=== PATIENT | female | born 1965 | race Caucasian/White ===

== ENCOUNTER 2016-06-12 18:34 | Emergency (ER) | payer OTHER ==
[~2016-06-12] VITALS: Ht 180.3 cm; Wt 65.9 kg
[~2016-06-12 18:34] MED LIST: AKTOB 5 ML5 ML OP; ANTIVERT 25MG25 MG PO; ATIVAN 0.50.5 MG/TAB PO; ATROVENT INHALE14 GM IH; BACTRIM DS 8001 TAB PO; CALCIUM 600600 M2 PO; CALCIUM CARBONATE PO; CEFTIN 250250 MG/TAB PO; CEPHALEXIN500 M1 PO; CHOLESTEROL MED; COLCRYS0.6 MG PO; FLEXERIL 1010 MG/TAB PO; FLOMAX 0.40.4 MG/CAP PO; K-DUR 10 MEQ T10 MEQ; K-DUR 2020 MEQ PO; K-DUR20 MEQ PO; K-TAB20 PO; LASIX 20MG TABL20 MG PO; LITHIUM 30300 MG/CAP PO; LORTAB 7.5/5001 TAB PO; MOTRIN 600600 MG/TAB PO; MULTIVITAMIN FO1 CAP PO; NORCO 325 MG-51 TAB PO; NORCO 325 MG-7.1 TAB PO; PERCOCET 325 MG1 TA2 PO; PHENERGAN 25 TA25 MG PO; PRIL40 PO; PRILOTC PO; PROZAC40 MG PO; REGLAN 10MG10 MG/TAB PO; REQUIP 0.5MG0.5 MG PO; REQUIP5 MG PO; SEROQUEL 2525 MG/TAB PO; SEROQUEL300 MG PO; SYNTHROID 0.0.025 MG PO; ULORIC80 MG PO; VALIUM 5MG T5 MG/TAB PO; VESICARE 5MG5 MG PO; ZOFRAN 4MG T4 MG/TAB PO; ZYPREXA 5MG5 MG PO; ZYPREXA2.5 MG PO; ZYPREXA7.5 MG PO
[2016-06-12 18:48] VITALS: BP 132/86; TEMP 98.4
[2016-06-12 21:19] LABS: ADJUSTED CALCIUM 9.5 mg/dL (8.4-10.2); ALBUMIN 3.2 gm/dL (3.5-5.0); BILIRUBIN,TOTAL 1.3 mg/dL (0.0-1.0); C-REACTIVE PROTEIN 1.5 mg/dL (0.0-0.9); CALCIUM 8.9 mg/dL (8.4-10.2); CREATININE, serum 0.77 mg/dL (0.52-1.25); MAGNESIUM 1.2 mg/dL (1.6-2.3); POTASSIUM 3.1 mmol/L (3.4-5.0); TOTAL PROTEIN 6.4 gm/dL (6.4-8.2)
[2016-06-12 21:26] LABS: HEMATOCRIT 39.3 % (37.0-47.0); HEMOGLOBIN 13.5 g/dl (12.5-16.0); MEAN CELL VOLUME 98 fl (80.0-100.0); MEAN CORPUSCULAR HEMOGLOBIN 34 pg (27.0-31.0); MEAN CORPUSCULAR HGB CONC 34 g/dl (33.0-37.0); MEAN PLATELET VOLUME 9.8 fl (7.4-10.4); PLATELET COUNT 146 K/mm3 (130-400); RED BLOOD COUNT 4.01 M/mm3 (4.10-5.30); WHITE BLOOD COUNT 8.7 K/mm3 (4.8-10.8)
[2016-06-12 21:27] LABS: URIC ACID 8.2 mg/dL (2.5-6.2)
[2016-06-12 22:29] LABS: PH 9 (5-8); SQUAMOUS EPITHELIAL 0-2 /hpf; URINE APPEARANCE Clear; URINE BACTERIA Rare /hpf; URINE BILIRUBIN Negative (NEGATIVE); URINE BLOOD 2+ (NEGATIVE); URINE COLOR Straw; URINE GLUCOSE Negative (NEGATIVE); URINE KETONE Negative (NEGATIVE); URINE RBC 0-2 /hpf; URINE UROBILINOGEN Negative (NEGATIVE); URINE WBC 0-2 /hpf
[2016-06-12] MEDS ORDERED: NORCO 325 MG-51 TAB PO (23:20)
[2016-06-12] MEDS ORDERED: INDOCIN50 MG PO (23:20)
[2016-06-12 23:53] VITALS: PULSE 82
== END 2016-06-13 00:22 | disposition home or self-care (01) ==
LOC: COL.ER 18:34
PROVIDERS: Emergency Medicine; Nurse Practitioner
DX: M10.9 Gout, unspecified (principal); M79.675 Pain in left toe(s)
CPT/HCPCS: J1100; J3010; J7030

== ENCOUNTER 2017-02-08 14:29 | Emergency (ER) | payer SELFPAY ==
[~2017-02-08] VITALS: Ht 180.3 cm; Wt 62.3 kg
[~2017-02-08 14:29] MED LIST changes: +INDOCIN50 MG PO
[2017-02-08 14:43] VITALS: TEMP 98
[2017-02-08] MEDS ORDERED: PRILOTC (14:48)
[2017-02-08] MEDS ORDERED: K-TAB20 (14:49)
[2017-02-08 15:45] LABS: ADJUSTED CALCIUM 8.8 mg/dL (8.4-10.2); ALBUMIN 3.5 gm/dL (3.5-5.0); BILIRUBIN,TOTAL 1.1 mg/dL (0.0-1.0); CALCIUM 8.4 mg/dL (8.4-10.2); CREATININE, serum 0.74 mg/dL (0.52-1.25); TOTAL PROTEIN 6.7 gm/dL (6.4-8.2)
[2017-02-08 15:49] LABS: BASO % 0.7 % (0.0-2.0); GRAN # 3.6 (1.4-6.5); GRAN % 63.8 % (42.2-75.2); HEMOGLOBIN 14.2 g/dl (12.5-16.0); LYMPH # 1.7 (1.2-3.4); LYMPH % 30.4 % (20.0-51.0); MEAN CELL VOLUME 95 fl (80.0-100.0); MEAN CORPUSCULAR HEMOGLOBIN 34 pg (27.0-31.0); MEAN CORPUSCULAR HGB CONC 36 g/dl (33.0-37.0); MEAN PLATELET VOLUME 9.4 fl (7.4-10.4); MONO # 0.3 (0.1-0.6); MONO % 4.9 % (1.7-9.3); PLATELET COUNT 291 K/mm3 (130-400); REDCELL DISTRIBUTION WIDTH-CV 14.6 % (11.5-14.5); WHITE BLOOD COUNT 5.6 K/mm3 (4.8-10.8)
[2017-02-08 17:05] LABS: PH 7 (5-8); URINE APPEARANCE Cloudy; URINE BACTERIA Moderate /hpf; URINE BILIRUBIN Positive (NEGATIVE); URINE BLOOD 2+ (NEGATIVE); URINE COLOR Amber; URINE GLUCOSE Negative (NEGATIVE); URINE KETONE Negative (NEGATIVE)
[2017-02-08] MEDS ORDERED: PHENERGAN 25 TA25 MG PO (17:30)
[2017-02-08] MEDS ORDERED: CIPRO 500MG TA500 MG PO (17:30)
[2017-02-08] MEDS ORDERED: K-TAB20 PO (17:30)
[2017-02-08 17:44] VITALS: BP 103/86; PULSE 103
== END 2017-02-08 17:43 | disposition home or self-care (01) ==
LOC: COL.ER 14:29
PROVIDERS: Emergency Medicine
DX: N39.0 Urinary tract infection, site not specified (principal); E87.6 Hypokalemia; M10.9 Gout, unspecified; F17.210 Nicotine dependence, cigarettes, uncomplicated; Z90.49 Acquired absence of other specified parts of digestive tract
CPT/HCPCS: J2550; J7030

== ENCOUNTER → 2017-11-26 | Outpatient (CLI) | payer MEDICARE, MEDICAID ==
[~2017-11-26] MED LIST changes: +CIPRO 500MG TA500 MG PO; +K-TAB20; +PRILOTC
[2017-11-26 11:03] LABS: HEMATOCRIT 36.1 % (37.0-47.0); HEMOGLOBIN 12.1 g/dl (12.5-16.0); MEAN CELL VOLUME 101 fl (80.0-100.0); MEAN CORPUSCULAR HEMOGLOBIN 34 pg (27.0-31.0); MEAN CORPUSCULAR HGB CONC 34 g/dl (33.0-37.0); MEAN PLATELET VOLUME 9.7 fl (7.4-10.4); PLATELET COUNT 175 K/mm3 (130-400); RED BLOOD COUNT 3.58 M/mm3 (4.10-5.30); REDCELL DISTRIBUTION WIDTH-CV 17.4 % (11.5-14.5)
[2017-11-26 11:10] LABS: ALANINE AMINOTRANSFERASE 85 U/L (9-52); ALBUMIN 3.2 gm/dL (3.5-5.0); ALKALINE PHOSPHATASE 148 U/L (50-136); ANION GAP 10 mmol/L (7-16); AST,SGOT 198 U/L (15-37); BILIRUBIN,TOTAL 0.5 mg/dL (0.0-1.0); BLOOD UREA NITROGEN 3 mg/dL (7-17); CALCIUM 7.8 mg/dL (8.4-10.2); CARBON DIOXIDE 31 mmol/L (22-30); CHLORIDE 101 mmol/L (98-107); CHOLESTEROL 152 mg/dL (120-200); CHOLESTEROL RISK RATIO 3.8; CREATININE, serum 0.56 mg/dL (0.52-1.25); GLUCOSE 88 mg/dL (74-106); HDL CHOLESTEROL 39 mg/dL; MAGNESIUM 1.4 mg/dL (1.6-2.3); POTASSIUM 3.2 mmol/L (3.4-5.0); SODIUM 142 mmol/L (137-145); TOTAL PROTEIN 6.3 gm/dL (6.4-8.2); URIC ACID 12.6 mg/dL (2.5-6.2)
[2017-11-26 11:19] LABS: TRIGLYCERIDE 638 mg/dL
[2017-11-26 11:50] LABS: BAND 4 % (0-10); LYMPHOCYTE 60 % (20.0-51.0); NEUTROPHILS 30 % (42.0-75.2); PLATELET ESTIMATE NORMAL (NORMAL)
[2017-11-26 11:51] LABS: ANISOCYTOSIS 1+; STOMATOCYTE 3+
[2017-11-30 15:04] LABS: VITAMIN D, 1,25 DIHYDROXY 21 pg/mL (18-78)
== END ==
LOC: COL.LAB 10:27
PROVIDERS: Family Medicine
DX: Z13.1 Encounter for screening for diabetes mellitus (principal); D64.9 Anemia, unspecified; E03.9 Hypothyroidism, unspecified; E78.5 Hyperlipidemia, unspecified; R53.83 Other fatigue; R63.0 Anorexia; M10.9 Gout, unspecified

== ENCOUNTER → 2017-12-07 | Outpatient (CLI) | payer MEDICARE, MEDICAID ==
[2017-12-07 12:49] LABS: HIV 1/2 Antibodies Non-Reactive; HIV-1p24 Antigen Non-Reactive
== END ==
LOC: COL.LAB 10:06
PROVIDERS: Family Medicine
DX: D72.819 Decreased white blood cell count, unspecified (principal)

== ENCOUNTER → 2018-05-18 | Outpatient (CLI) | payer MEDICARE, MEDICAID | LOC: COL.RAD 09:35 | DX: J40 Bronchitis, not specified as acute or chronic (principal) ==

== ENCOUNTER → 2018-06-22 | Outpatient (CLI) | payer MEDICARE | LOC: MC.RAD 12:57 | DX: D17.79 Benign lipomatous neoplasm of other sites (principal); N63.20 Unspecified lump in the left breast, unspecified quadrant; Z91.89 Other specified personal risk factors, not elsewhere classified | CPT/HCPCS: G0279 ==

== ENCOUNTER → 2019-02-09 | Outpatient (CLI) | payer MEDICARE ==
[~2019-02-09] MED LIST changes: +ALDACTONE 100M100 MG PO; +COLACE 100100 MG/CAP PO; +INCRUSE EL62.5 MCG/A IH; +LASIX 40MG TABL40 MG PO; +LOPID 600M600 MG/TAB PO; +MAG-OX 400400 MG/TAB PO; +OMNICEF 300MG300 MG PO; -PRILOTC; +REQUIP0.25 MG PO; +SYNTHROID0.05 MG/TA PO; +SYNTHROID0.075 MG/T PO; +VENTOLIN0.09 MG IH; +ZOFRAN ODT4 MG PO
[2019-02-09 17:33] LABS: BASO % 0.4 % (0.0-2.0); GRAN # 3.5 (1.4-6.5); GRAN % 65.7 % (42.2-75.2); HEMATOCRIT 40.6 % (37.0-47.0); LYMPH # 1.6 (1.2-3.4); LYMPH % 29.9 % (20.0-51.0); MEAN CELL VOLUME 97 fl (80.0-100.0); MEAN CORPUSCULAR HEMOGLOBIN 31 pg (27.0-31.0); MEAN CORPUSCULAR HGB CONC 32 g/dl (33.0-37.0); MONO # 0.2 (0.1-0.6); MONO % 3.8 % (1.7-9.3); PLATELET COUNT 265 K/mm3 (130-400); RED BLOOD COUNT 4.18 M/mm3 (4.10-5.30); REDCELL DISTRIBUTION WIDTH-CV 17.6 % (11.5-14.5); RETIC % 2.4 % (0.5-3.52)
== END ==
LOC: ZCOL.LAB 16:48
PROVIDERS: Family Medicine
DX: D64.9 Anemia, unspecified (principal)

== ENCOUNTER → 2019-03-03 | Outpatient (CLI) | payer MEDICARE ==
[2019-03-03 13:19] LABS: BASO % 0.4 % (0.0-2.0); GRAN # 2.6 (1.4-6.5); GRAN % 56.7 % (42.2-75.2); HEMATOCRIT 38.5 % (37.0-47.0); LYMPH # 1.5 (1.2-3.4); LYMPH % 34.1 % (20.0-51.0); MEAN CELL VOLUME 96 fl (80.0-100.0); MEAN CORPUSCULAR HEMOGLOBIN 33 pg (27.0-31.0); MEAN CORPUSCULAR HGB CONC 34 g/dl (33.0-37.0); MEAN PLATELET VOLUME 9.7 fl (7.4-10.4); MONO # 0.4 (0.1-0.6); MONO % 8.6 % (1.7-9.3); PLATELET COUNT 225 K/mm3 (130-400); REDCELL DISTRIBUTION WIDTH-CV 19.2 % (11.5-14.5)
[2019-03-03 13:37] LABS: ALBUMIN 3.5 gm/dL (3.5-5.0); BILIRUBIN,TOTAL 0.6 mg/dL (0.0-1.0); CREATININE, serum 0.64 (0.52-1.25); POTASSIUM 3.1 mmol/L (3.4-5.0)
[2019-03-03 14:05] LABS: THYROID STIMULATING HORMONE 2.98 uIU/mL (0.465-4.680)
== END ==
LOC: ZCOL.LAB 13:09
PROVIDERS: Family Medicine
DX: K74.60 Unspecified cirrhosis of liver (principal); E03.9 Hypothyroidism, unspecified; R18.8 Other ascites

== ENCOUNTER → 2019-05-30 | Outpatient (CLI) | payer MEDICARE ==
[2019-05-30 15:24] LABS: BASO % 0.4 % (0.0-2.0); GRAN # 2.8 (1.4-6.5); GRAN % 54.8 % (42.2-75.2); HEMATOCRIT 41.2 % (37.0-47.0); HEMOGLOBIN 13.3 g/dl (12.5-16.0); LYMPH # 1.8 (1.2-3.4); LYMPH % 35.9 % (20.0-51.0); MEAN CELL VOLUME 97 fl (80.0-100.0); MEAN CORPUSCULAR HEMOGLOBIN 31 pg (27.0-31.0); MEAN CORPUSCULAR HGB CONC 32 g/dl (33.0-37.0); MEAN PLATELET VOLUME 9.5 fl (7.4-10.4); MONO # 0.4 (0.1-0.6); MONO % 8.5 % (1.7-9.3); PLATELET COUNT 293 K/mm3 (130-400); RED BLOOD COUNT 4.26 M/mm3 (4.10-5.30); REDCELL DISTRIBUTION WIDTH-CV 17.6 % (11.5-14.5)
[2019-05-30 15:37] LABS: ALBUMIN 3.7 gm/dL (3.5-5.0); BILIRUBIN,TOTAL 0.7 mg/dL (0.0-1.0); CALCIUM 9.2 mg/dL (8.4-10.2); CREATININE, serum 0.71 (0.52-1.25); POTASSIUM 3.8 mmol/L (3.4-5.0); TOTAL PROTEIN 7.8 gm/dL (6.4-8.2)
[2019-05-30 16:19] LABS: PROTHROMBIN TIME 11.4 SECONDS (9.7-12.8)
== END ==
LOC: COL.LAB 14:42
PROVIDERS: Internal Medicine Gastroenterology
DX: K74.60 Unspecified cirrhosis of liver (principal)

== ENCOUNTER 2019-06-19 13:06 | Day surgery (SDC) | payer MEDICARE ==
[~2019-06-19] VITALS: Ht 180.3 cm; Wt 72.0 kg
[2019-06-19 13:37] VITALS: BP 126/81; PULSE 97; TEMP 98.2
[2019-06-19] MEDS ORDERED: REQUIP 0.5MG0.5 MG PO (13:40)
[2019-06-19] MEDS ORDERED: LASIX 40MG TABL40 MG PO (13:40)
[2019-06-19] MEDS ORDERED: PRIL40 PO (13:41)
[2019-06-19] MEDS ORDERED: RT ADVAIR 228 DISKUS IH (13:41)
[2019-06-19] MEDS ORDERED: ALDACTONE 100M100 MG PO (13:41)
[2019-06-19] MEDS ORDERED: ZOFRAN 4MG T4 MG/TAB PO (13:42)
[2019-06-19] MEDS ORDERED: LEVOXYL0.075 MG PO (13:42)
[2019-06-19] MEDS ORDERED: PROMETHAZINE12.5 M5 PO (13:43)
[2019-06-19] MEDS ORDERED: LOPID 600M600 MG/TAB PO (13:43)
[2019-06-19] MEDS ORDERED: INCRUSE EL62.5 MCG/A IH (13:43)
[2019-06-19] MEDS ORDERED: KLOR-CON M2020 MEQ PO (13:44)
[2019-06-19] MEDS ORDERED: ULORIC40 MG PO (13:44)
[2019-06-19 14:50] VITALS: BP 116/66; PULSE 99; TEMP 98.2
--- NOTE | 2019-06-19 14:50 | NUR ---
Patient brought back to [facility] bay 3 via cart. Ambulated to chair without difficulty. Placed on monitors, vital signs stable. IV infusing without difficulty. Cady RN at bedside for report. Pt denies pain or nausea. Requests toast and grape juice. Significant other at bedside. Call maldonado within reach. Warm blanket provided will continue to monitor.
[2019-06-19 15:05] VITALS: BP 109/85; PULSE 95
--- NOTE | 2019-06-19 15:05 | NUR ---
Vital signs stable. pt tolerating food and drink without difficulty. Will continue to monitor.
[2019-06-19 15:20] VITALS: BP 117/79; PULSE 88
--- NOTE | 2019-06-19 15:20 | NUR ---
Patient states that she is ready to go home. Dr. Joyner has not been able to visit with pt, per MD may discharge anyhow. IV removed tolerated well. Pt to get dressed at this time.
--- NOTE | 2019-06-19 15:37 | NUR ---
Discharge instructions reviewed with pt and significant other. All questions answered. Pt brought down to lobby via wheel chair. To be driven home by significant other Montrell.
== END 2019-06-19 15:20 | disposition home or self-care (01) ==
LOC: SDCO 13:06
DX: K74.60 Unspecified cirrhosis of liver (principal); K22.10 Ulcer of esophagus without bleeding; K21.0 Gastro-esophageal reflux disease with esophagitis; K44.9 Diaphragmatic hernia without obstruction or gangrene; K29.70 Gastritis, unspecified, without bleeding; K62.89 Other specified diseases of anus and rectum; K64.0 First degree hemorrhoids; Z79.899 Other long term (current) drug therapy; F17.210 Nicotine dependence, cigarettes, uncomplicated; F41.9 Anxiety disorder, unspecified; E03.9 Hypothyroidism, unspecified; D64.9 Anemia, unspecified; D69.6 Thrombocytopenia, unspecified; J44.9 Chronic obstructive pulmonary disease, unspecified; I10 Essential (primary) hypertension; E78.5 Hyperlipidemia, unspecified; F10.21 Alcohol dependence, in remission; J40 Bronchitis, not specified as acute or chronic
CPT/HCPCS: J2250; J2704; J7030

== ENCOUNTER → 2019-10-03 | Outpatient (CLI) | payer MEDICARE ==
[~2019-10-03] VITALS: Ht 177.8 cm; Wt 69.3 kg
[~2019-10-03] MED LIST changes: +AMOXICILLIN 8751 TAB PO; +KLOR-CON M2020 MEQ PO; +LEVOXYL0.075 MG PO; +PROMETHAZINE12.5 M5 PO; +RT ADVAIR 228 DISKUS IH; +ULORIC40 MG PO
[2019-10-03 11:49] VITALS: BP 135/79; PULSE 118
[2019-10-03 12:11] LABS: BASO % 0.3 % (0.0-2.0); EOS % 0.3 % (0-4.0); GRAN # 5.3 (1.4-6.5); GRAN % 76.9 % (42.2-75.2); HEMOGLOBIN 12.6 g/dl (12.5-16.0); LYMPH # 1.3 (1.2-3.4); MEAN CELL VOLUME 97 fl (80.0-100.0); MEAN CORPUSCULAR HEMOGLOBIN 33 pg (27.0-31.0); MEAN CORPUSCULAR HGB CONC 34 g/dl (33.0-37.0); MEAN PLATELET VOLUME 8.7 fl (7.4-10.4); MONO # 0.2 (0.1-0.6); MONO % 3.2 % (1.7-9.3); PLATELET COUNT 316 K/mm3 (130-400); RED BLOOD COUNT 3.79 M/mm3 (4.10-5.30); REDCELL DISTRIBUTION WIDTH-CV 14.8 % (11.5-14.5)
[2019-10-03 12:13] LABS: HEMATOCRIT 36.8 % (37.0-47.0)
[2019-10-03 12:22] LABS: INR 1.2 (0.8-3.0); PROTHROMBIN TIME 13.2 SECONDS (9.7-12.8)
[2019-10-03 12:35] LABS: ALBUMIN 3.1 gm/dL (3.5-5.0); BILIRUBIN,TOTAL 1.3 mg/dL (0.0-1.0); CALCIUM 8.6 mg/dL (8.4-10.2); CREATININE, serum 0.71 (0.52-1.25); TOTAL PROTEIN 7.1 gm/dL (6.4-8.2)
[2019-10-03 13:25] VITALS: BP 129/83; PULSE 113
[2019-10-03 13:58] LABS: PLEURAL FLUID RBC 0 /mm3 (0-0); PLEURAL FLUID WBC 154 /mm3
[2019-10-03 14:05] LABS: PLEURAL FLUID COLOR COLORLESS
[2019-10-03 14:06] LABS: PLEURAL FLUID APPEARANCE CLEAR
[2019-10-03 14:09] LABS: TOTAL PROTEIN,PLEURAL FLUID < 2.0 gm/dL
[2019-10-03 16:02] VITALS: BP 126/77; PULSE 118
== END ==
LOC: COL.RAD 11:26
PROVIDERS: Internal Medicine Gastroenterology
DX: K74.60 Unspecified cirrhosis of liver (principal); E87.70 Fluid overload, unspecified
CPT/HCPCS: P9047

== ENCOUNTER 2019-12-07 16:44 | Emergency (ER) | payer MEDICARE ==
[~2019-12-07] VITALS: Ht 177.8 cm; Wt 68.2 kg
[2019-12-07 16:52] VITALS: TEMP 98.3
[2019-12-07 17:52] LABS: HEMATOCRIT 37.3 % (37.0-47.0); HEMOGLOBIN 12.6 g/dl (12.5-16.0); MEAN CELL VOLUME 96 fl (80.0-100.0); MEAN CORPUSCULAR HEMOGLOBIN 33 pg (27.0-31.0); MEAN CORPUSCULAR HGB CONC 34 g/dl (33.0-37.0); MEAN PLATELET VOLUME 10.3 fl (7.4-10.4); PLATELET COUNT 150 K/mm3 (130-400); RED BLOOD COUNT 3.87 M/mm3 (4.10-5.30)
[2019-12-07 18:04] LABS: ALANINE AMINOTRANSFERASE 27 U/L (4-34); ALBUMIN 2.8 gm/dL (3.5-5.0); ALKALINE PHOSPHATASE 299 U/L (50-136); ANION GAP 8 mmol/L (7-16); AST,SGOT 140 U/L (15-37); BILIRUBIN,TOTAL 1.5 mg/dL (0.0-1.0); BLOOD UREA NITROGEN 4 mg/dL (7-17); C-REACTIVE PROTEIN 1.6 mg/dL (0.0-0.9); CALCIUM 7.8 mg/dL (8.4-10.2); CARBON DIOXIDE 30 mmol/L (22-30); CHLORIDE 93 mmol/L (98-107); CREATININE, serum 0.67 (0.52-1.25); GLUCOSE 134 mg/dL (74-106); SODIUM 132 mmol/L (137-145); TOTAL PROTEIN 6.6 gm/dL (6.4-8.2)
[2019-12-07 18:06] LABS: POTASSIUM 2.8 mmol/L (3.4-5.0)
[2019-12-07 18:17] LABS: TROPONIN-I < 0.012 ng/mL (0.000-0.035)
[2019-12-07 18:25] LABS: ANISOCYTOSIS 3+; BAND 2 % (0-10); LYMPHOCYTE 22 % (20.0-51.0); NEUTROPHILS 71 % (42.0-75.2); PLATELET ESTIMATE NORMAL (NORMAL)
[2019-12-07 18:26] LABS: STOMATOCYTE 1+
[2019-12-07 20:14] VITALS: BP 92/64; PULSE 99
[2019-12-07] MEDS ORDERED: K-DUR20 MEQ PO (20:23)
== END 2019-12-07 20:25 | disposition home or self-care (01) ==
LOC: COL.ER 16:44
PROVIDERS: Nurse Practitioner
DX: R06.02 Shortness of breath (principal); E87.6 Hypokalemia; F17.210 Nicotine dependence, cigarettes, uncomplicated; J44.9 Chronic obstructive pulmonary disease, unspecified; K21.9 Gastro-esophageal reflux disease without esophagitis; Z20.828 Contact with and (suspected) exposure to other viral communicable diseases; Z79.2 Long term (current) use of antibiotics
CPT/HCPCS: J3480; J7030; Q9967

== ENCOUNTER 2019-12-23 00:14 | Emergency (ER) | payer MEDICARE ==
[~2019-12-23] VITALS: Ht 180.3 cm; Wt 65.9 kg
[2019-12-23 00:21] VITALS: TEMP 97.1
[2019-12-23 00:56] LABS: BASO % 0.5 % (0.0-2.0); GRAN # 3.8 (1.4-6.5); GRAN % 59.6 % (42.2-75.2); HEMOGLOBIN 11.9 g/dl (12.5-16.0); LYMPH % 31.5 % (20.0-51.0); MEAN CELL VOLUME 100 fl (80.0-100.0); MEAN CORPUSCULAR HEMOGLOBIN 34 pg (27.0-31.0); MEAN CORPUSCULAR HGB CONC 34 g/dl (33.0-37.0); MONO # 0.5 (0.1-0.6); MONO % 8.2 % (1.7-9.3); PLATELET COUNT 176 K/mm3 (130-400); RED BLOOD COUNT 3.51 M/mm3 (4.10-5.30)
[2019-12-23 01:08] LABS: ALBUMIN 2.9 gm/dL (3.5-5.0); BILIRUBIN,TOTAL 0.9 mg/dL (0.0-1.0); C-REACTIVE PROTEIN 0.6 mg/dL (0.0-0.9); CALCIUM 8.1 mg/dL (8.4-10.2); CREATININE, serum 0.82 (0.52-1.25); MAGNESIUM 1.3 mg/dL (1.6-2.3); POTASSIUM 3.4 mmol/L (3.4-5.0); TOTAL PROTEIN 6.9 gm/dL (6.4-8.2)
[2019-12-23] MEDS ORDERED: ANTIVERT 25MG25 MG PO (01:27)
[2019-12-23] MEDS ORDERED: CARAFATE 1GM1 G PO (01:27)
[2019-12-23] MEDS ORDERED: ZOFRAN ODT4 MG PO (01:27)
[2019-12-23] MEDS ORDERED: REQUIP 1MG T1 MG/TAB PO (02:33)
[2019-12-23 02:49] VITALS: BP 122/70; PULSE 68
== END 2019-12-23 02:49 | disposition home or self-care (01) ==
LOC: COL.ER 00:14
PROVIDERS: Emergency Medicine
DX: K29.70 Gastritis, unspecified, without bleeding (principal); E83.42 Hypomagnesemia; R42 Dizziness and giddiness; J44.9 Chronic obstructive pulmonary disease, unspecified; F10.229 Alcohol dependence with intoxication, unspecified; F41.9 Anxiety disorder, unspecified; E03.9 Hypothyroidism, unspecified; Z90.49 Acquired absence of other specified parts of digestive tract; Z98.51 Tubal ligation status; Z90.89 Acquired absence of other organs; Z79.51 Long term (current) use of inhaled steroids
CPT/HCPCS: J2405; J2550; J7030

== ENCOUNTER 2019-12-30 15:24 | Emergency (ER) | payer MEDICARE ==
[~2019-12-30] VITALS: Ht 180.3 cm; Wt 68.2 kg
[~2019-12-30 15:24] MED LIST changes: +CARAFATE 1GM1 G PO; +REQUIP 1MG T1 MG/TAB PO
[2019-12-30 15:54] VITALS: TEMP 97.5
[2019-12-30 19:41] LABS: BASO % 0.6 % (0.0-2.0); GRAN # 2.9 (1.4-6.5); GRAN % 59.6 % (42.2-75.2); HEMATOCRIT 37.6 % (37.0-47.0); HEMOGLOBIN 12.3 g/dl (12.5-16.0); LYMPH # 1.6 (1.2-3.4); LYMPH % 31.9 % (20.0-51.0); MEAN CELL VOLUME 104 fl (80.0-100.0); MEAN CORPUSCULAR HEMOGLOBIN 34 pg (27.0-31.0); MEAN CORPUSCULAR HGB CONC 33 g/dl (33.0-37.0); MEAN PLATELET VOLUME 9.4 fl (7.4-10.4); MONO # 0.4 (0.1-0.6); MONO % 7.7 % (1.7-9.3); PLATELET COUNT 153 K/mm3 (130-400); RED BLOOD COUNT 3.63 M/mm3 (4.10-5.30); REDCELL DISTRIBUTION WIDTH-CV 18.3 % (11.5-14.5)
[2019-12-30 19:50] LABS: INR 1.3 (0.8-3.0)
[2019-12-30 20:01] LABS: ALBUMIN 2.8 gm/dL (3.5-5.0); BILIRUBIN,TOTAL 1.4 mg/dL (0.0-1.0); C-REACTIVE PROTEIN 1.1 mg/dL (0.0-0.9); CALCIUM 8.2 mg/dL (8.4-10.2); CREATININE, serum 0.81 (0.52-1.25); MAGNESIUM 1.5 mg/dL (1.6-2.3); TOTAL PROTEIN 6.9 gm/dL (6.4-8.2)
[2019-12-30 20:09] LABS: D-DIMER > 5250.00 ng/mLDDu (200-230)
[2019-12-30 21:21] VITALS: BP 93/52; PULSE 108
== END 2019-12-30 21:26 | disposition home or self-care (01) ==
LOC: COL.ER 15:24
PROVIDERS: Emergency Medicine
DX: M79.89 Other specified soft tissue disorders (principal); R79.1 Abnormal coagulation profile; E03.9 Hypothyroidism, unspecified; E87.6 Hypokalemia; F17.200 Nicotine dependence, unspecified, uncomplicated
CPT/HCPCS: J1650; J2550; J7030

== ENCOUNTER → 2020-01-01 | Outpatient (CLI) | payer MEDICARE | LOC: COL.VAS 09:00 | DX: M79.89 Other specified soft tissue disorders (principal); R79.1 Abnormal coagulation profile ==

== ENCOUNTER 2020-01-31 07:59 | Emergency (ER) | payer MEDICARE ==
[~2020-01-31] VITALS: Ht 180.3 cm; Wt 68.2 kg
[2020-01-31 08:06] VITALS: TEMP 97.3
[2020-01-31 09:10] LABS: BASO % 0.3 % (0.0-2.0); EOS % 0.1 % (0-4.0); GRAN # 6.9 (1.4-6.5); GRAN % 70.3 % (42.2-75.2); HEMOGLOBIN 10.8 g/dl (12.5-16.0); LYMPH # 2.3 (1.2-3.4); LYMPH % 23.1 % (20.0-51.0); MEAN CELL VOLUME 97 fl (80.0-100.0); MEAN CORPUSCULAR HEMOGLOBIN 33 pg (27.0-31.0); MEAN CORPUSCULAR HGB CONC 34 g/dl (33.0-37.0); MEAN PLATELET VOLUME 8.6 fl (7.4-10.4); MONO # 0.6 (0.1-0.6); MONO % 5.7 % (1.7-9.3); PLATELET COUNT 422 K/mm3 (130-400); RED BLOOD COUNT 3.25 M/mm3 (4.10-5.30); REDCELL DISTRIBUTION WIDTH-CV 14.5 % (11.5-14.5)
[2020-01-31 09:11] LABS: HEMATOCRIT 31.5 % (37.0-47.0)
[2020-01-31 09:21] LABS: ALANINE AMINOTRANSFERASE 14 U/L (4-34); ALCOHOL(ethanol),MEDICAL 88 mg/dL; ALKALINE PHOSPHATASE 149 U/L (50-136); ANION GAP 11 mmol/L (7-16); AST,SGOT 68 U/L (15-37); BILIRUBIN,TOTAL 0.6 mg/dL (0.0-1.0); BLOOD UREA NITROGEN 11 mg/dL (7-17); C-REACTIVE PROTEIN 1.2 mg/dL (0.0-0.9); CALCIUM 8.4 mg/dL (8.4-10.2); CARBON DIOXIDE 23 mmol/L (22-30); CHLORIDE 101 mmol/L (98-107); CREATININE, serum 0.79 (0.52-1.25); GLUCOSE 110 mg/dL (74-106); LIPASE 37 U/L (23-300); SODIUM 136 mmol/L (137-145); TOTAL PROTEIN 6.1 gm/dL (6.4-8.2)
[2020-01-31 09:32] LABS: TROPONIN-I < 0.012 ng/mL (0.000-0.035)
[2020-01-31 12:30] VITALS: BP 110/77; PULSE 120
== END 2020-01-31 12:30 | disposition home or self-care (01) ==
LOC: COL.ER 07:59
PROVIDERS: Emergency Medicine
DX: S30.1XXA Contusion of abdominal wall, initial encounter (principal); F10.10 Alcohol abuse, uncomplicated; K74.60 Unspecified cirrhosis of liver; Z87.891 Personal history of nicotine dependence; Z88.6 Allergy status to analgesic agent; W18.09XA Striking against other object with subsequent fall, initial encounter; Y92.009 Unspecified place in unspecified non-institutional (private) residence as the place of occurrence of the external cause
CPT/HCPCS: J2405; J7030; J7040; Q9967

== ENCOUNTER 2020-06-09 07:47 | Emergency (ER) | payer MEDICARE ==
[~2020-06-09] VITALS: Ht 180.3 cm; Wt 65.9 kg
[2020-06-09 07:55] VITALS: TEMP 97.7
[2020-06-09 09:03] LABS: BASO % 0.3 % (0.0-2.0); GRAN # 1.7 (1.4-6.5); GRAN % 55.8 % (42.2-75.2); HEMOGLOBIN 11.7 g/dl (12.5-16.0); LYMPH # 1.1 (1.2-3.4); MEAN CELL VOLUME 97 fl (80.0-100.0); MEAN CORPUSCULAR HEMOGLOBIN 32 pg (27.0-31.0); MEAN CORPUSCULAR HGB CONC 33 g/dl (33.0-37.0); MEAN PLATELET VOLUME 9.3 fl (7.4-10.4); MONO # 0.3 (0.1-0.6); MONO % 9.6 % (1.7-9.3); PLATELET COUNT 116 K/mm3 (130-400); RED BLOOD COUNT 3.68 M/mm3 (4.10-5.30)
[2020-06-09 09:04] LABS: INR 1.1 (0.8-3.0); PROTHROMBIN TIME 12.6 SECONDS (9.7-12.8)
[2020-06-09 09:06] LABS: HEMATOCRIT 35.7 % (37.0-47.0)
[2020-06-09 09:07] LABS: PARTIAL THROMBOPLASTIN TIME 30.8 SECONDS (26.0-37.0)
[2020-06-09 09:09] LABS: ALANINE AMINOTRANSFERASE 24 U/L (4-34); ALBUMIN 2.8 gm/dL (3.5-5.0); ALKALINE PHOSPHATASE 247 U/L (50-136); ANION GAP 6 mmol/L (7-16); AST,SGOT 75 U/L (15-37); BILIRUBIN,TOTAL 1.1 mg/dL (0.0-1.0); BLOOD UREA NITROGEN 14 mg/dL (7-17); CALCIUM 7.4 mg/dL (8.4-10.2); CARBON DIOXIDE 27 mmol/L (22-30); CHLORIDE 103 mmol/L (98-107); CREATININE, serum 0.98 (0.52-1.25); GLUCOSE 83 mg/dL (74-106); POTASSIUM 4.2 mmol/L (3.4-5.0); SODIUM 136 mmol/L (137-145); TOTAL PROTEIN 6.3 gm/dL (6.4-8.2)
[2020-06-09 09:20] LABS: TROPONIN-I < 0.012 ng/mL (0.000-0.035)
[2020-06-09 10:02] LABS: COLLECTION METHOD CLEAN CATCH
[2020-06-09 10:31] LABS: PH 5 (5-8); SQUAMOUS EPITHELIAL 0-2 /hpf; URINE APPEARANCE Clear; URINE BACTERIA None Seen /hpf; URINE BILIRUBIN Negative (NEGATIVE); URINE BLOOD Negative (NEGATIVE); URINE COLOR Yellow; URINE GLUCOSE Negative (NEGATIVE); URINE KETONE Negative (NEGATIVE); URINE LEUKOCYTE ESTERASE Negative (NEGATIVE); URINE NITRATE Negative (NEGATIVE); URINE PROTEIN(semi-quant) Negative (NEGATIVE); URINE RBC 0-2 /hpf; URINE UROBILINOGEN Negative (NEGATIVE)
[2020-06-09 11:15] VITALS: BP 95/51; PULSE 68
== END 2020-06-09 11:15 | disposition home or self-care (01) ==
LOC: COL.ER 07:47
PROVIDERS: Family Medicine
DX: R18.8 Other ascites (principal); K74.60 Unspecified cirrhosis of liver; E86.0 Dehydration; K21.9 Gastro-esophageal reflux disease without esophagitis; F17.210 Nicotine dependence, cigarettes, uncomplicated; Z88.8 Allergy status to other drugs, medicaments and biological substances; Z88.6 Allergy status to analgesic agent
CPT/HCPCS: J2405; J7030; J7120

== ENCOUNTER 2020-06-18 16:54 | Emergency (ER) | payer MEDICARE ==
[~2020-06-18] VITALS: Ht 180.3 cm; Wt 65.9 kg
[2020-06-18 18:03] LABS: BASO % 0.5 % (0.0-2.0); GRAN # 4.3 (1.4-6.5); GRAN % 72.1 % (42.2-75.2); HEMOGLOBIN 11.9 g/dl (12.5-16.0); LYMPH # 1.3 (1.2-3.4); LYMPH % 21.6 % (20.0-51.0); MEAN CELL VOLUME 93 fl (80.0-100.0); MEAN CORPUSCULAR HEMOGLOBIN 32 pg (27.0-31.0); MEAN CORPUSCULAR HGB CONC 34 g/dl (33.0-37.0); MEAN PLATELET VOLUME 8.3 fl (7.4-10.4); MONO # 0.3 (0.1-0.6); MONO % 5.5 % (1.7-9.3); PLATELET COUNT 173 K/mm3 (130-400); RED BLOOD COUNT 3.75 M/mm3 (4.10-5.30); REDCELL DISTRIBUTION WIDTH-CV 19.1 % (11.5-14.5)
[2020-06-18 18:04] LABS: HEMATOCRIT 34.8 % (37.0-47.0)
[2020-06-18 18:20] LABS: ALANINE AMINOTRANSFERASE 32 U/L (4-34); ALKALINE PHOSPHATASE 271 U/L (50-136); ANION GAP 9 mmol/L (7-16); AST,SGOT 206 U/L (15-37); BILIRUBIN,TOTAL 0.9 mg/dL (0.0-1.0); BLOOD UREA NITROGEN 7 mg/dL (7-17); CALCIUM 7.9 mg/dL (8.4-10.2); CARBON DIOXIDE 28 mmol/L (22-30); CHLORIDE 97 mmol/L (98-107); CREATININE, serum 0.61 (0.52-1.25); GLUCOSE 111 mg/dL (74-106); LIPASE 35 U/L (23-300); POTASSIUM 3.2 mmol/L (3.4-5.0); SODIUM 134 mmol/L (137-145); TOTAL PROTEIN 6.6 gm/dL (6.4-8.2)
[2020-06-18 18:33] LABS: TROPONIN-I < 0.012 ng/mL (0.000-0.035)
[2020-06-18 18:53] VITALS: BP 113/64; PULSE 105; TEMP 98.5
== END 2020-06-18 19:04 | disposition home or self-care (01) ==
LOC: COL.ER 16:54
PROVIDERS: Emergency Medicine
DX: R55 Syncope and collapse (principal); K70.31 Alcoholic cirrhosis of liver with ascites; E87.6 Hypokalemia; R05 Cough; R06.00 Dyspnea, unspecified; K21.9 Gastro-esophageal reflux disease without esophagitis; Z20.822 Contact with and (suspected) exposure to COVID-19; Z88.5 Allergy status to narcotic agent; Z88.6 Allergy status to analgesic agent; Z88.8 Allergy status to other drugs, medicaments and biological substances; Z79.51 Long term (current) use of inhaled steroids; Z79.890 Hormone replacement therapy

== ENCOUNTER 2020-08-23 06:15 | Day surgery (SDC) | payer MEDICARE ==
[~2020-08-23] VITALS: Ht 177.8 cm; Wt 69.7 kg
[2020-08-23 06:27] VITALS: BP 99/63; PULSE 82; TEMP 98.7
[2020-08-23] MEDS ORDERED: ZYLOPRIM 100MG100 MG PO (06:33)
[2020-08-23] MEDS ORDERED: PROAIR HFA0.09 MG/AC IH (06:38)
[2020-08-23 07:40] VITALS: BP 78/60; PULSE 84; TEMP 97.9
[2020-08-23 07:55] VITALS: BP 99/63; PULSE 87
[2020-08-23 08:15] VITALS: BP 103/76; PULSE 86
[2020-08-23 08:30] VITALS: BP 98/69; PULSE 88
--- NOTE | 2020-08-23 08:49 | NUR ---
PT RETURNED FROM ENDO PROCEDDURE ROOM INTO 1 [place]. VSS, DENIES PAIN OR NAUSEA. PT STATES, 'IM SLEEPY AND ALITTLE DIZZY'. PT REQUESTED TOAST, BUTTER AND GRAPE JUICE. LUNGS CLEAR, DIMINISHED BASES, HRR, BOWEL SOUNDS PRESENT. WILL CONT TO MONITOR PROGRESS.
--- NOTE | 2020-08-23 08:57 | NUR ---
PT TOLERATING TOAST AND GRAPE JUICE. DENIES PAIN OR NAUSEA. WILL CONT TO MONITOR.
[2020-08-23 09:00] VITALS: BP 95/64; PULSE 86
--- NOTE | 2020-08-23 09:03 | NUR ---
IV DC'D TO RIGHT HAND. DISCHARGE INSTRUCTIONS PROVIDED, PT STATES UNDERSTANDING. DISMISSAL INSTRUCTIONS SIGNED. PT WAS TAKEN OUT TO THE PT ENTRANCE. GLENDY, FRIEND WAS DRIVING.
== END 2020-08-23 08:40 | disposition home or self-care (01) ==
LOC: SDCO 06:15
DX: K21.9 Gastro-esophageal reflux disease without esophagitis (principal); K29.70 Gastritis, unspecified, without bleeding; K44.9 Diaphragmatic hernia without obstruction or gangrene; K22.8 Other specified diseases of esophagus; K22.4 Dyskinesia of esophagus; K31.89 Other diseases of stomach and duodenum; E03.8 Other specified hypothyroidism; M10.9 Gout, unspecified; E87.6 Hypokalemia; K70.31 Alcoholic cirrhosis of liver with ascites; G89.29 Other chronic pain; M19.90 Unspecified osteoarthritis, unspecified site; M06.9 Rheumatoid arthritis, unspecified; J44.9 Chronic obstructive pulmonary disease, unspecified; D69.6 Thrombocytopenia, unspecified; E55.9 Vitamin D deficiency, unspecified; F17.210 Nicotine dependence, cigarettes, uncomplicated; Z20.822 Contact with and (suspected) exposure to COVID-19; Z79.891 Long term (current) use of opiate analgesic; Z79.899 Other long term (current) drug therapy; Z79.890 Hormone replacement therapy
CPT/HCPCS: J2704; J7120

== ENCOUNTER 2020-09-03 21:19 | Emergency (ER) | payer MEDICARE ==
[~2020-09-03] VITALS: Ht 180.3 cm; Wt 65.9 kg
[~2020-09-03 21:19] MED LIST changes: +PROAIR HFA0.09 MG/AC IH; +ZYLOPRIM 100MG100 MG PO
[2020-09-03 22:04] LABS: BASO % 0.3 % (0.0-2.0); EOS % 0.2 % (0-4.0); GRAN # 4.3 (1.4-6.5); GRAN % 71.1 % (42.2-75.2); HEMATOCRIT 39.1 % (37.0-47.0); HEMOGLOBIN 12.6 g/dl (12.5-16.0); LYMPH # 1.3 (1.2-3.4); LYMPH % 21.7 % (20.0-51.0); MEAN CELL VOLUME 94 fl (80.0-100.0); MEAN CORPUSCULAR HEMOGLOBIN 30 pg (27.0-31.0); MEAN CORPUSCULAR HGB CONC 32 g/dl (33.0-37.0); MONO # 0.4 (0.1-0.6); MONO % 6.4 % (1.7-9.3); PLATELET COUNT 166 K/mm3 (130-400); RED BLOOD COUNT 4.14 M/mm3 (4.10-5.30); REDCELL DISTRIBUTION WIDTH-CV 16.9 % (11.5-14.5)
[2020-09-03 22:14] LABS: ACETAMINOPHEN < 10 ug/mL (10-30); ALANINE AMINOTRANSFERASE 41 U/L (4-34); ALBUMIN 3.9 gm/dL (3.5-5.0); ALCOHOL(ethanol),MEDICAL < 10 mg/dL; ALKALINE PHOSPHATASE 181 U/L (50-136); ANION GAP 15 mmol/L (7-16); AST,SGOT 158 U/L (15-37); BILIRUBIN,TOTAL 2.2 mg/dL (0.0-1.0); BLOOD UREA NITROGEN 8 mg/dL (7-17); CALCIUM 9.1 mg/dL (8.4-10.2); CARBON DIOXIDE 20 mmol/L (22-30); CHLORIDE 102 mmol/L (98-107); CREATININE, serum 0.85 (0.52-1.25); GLUCOSE 93 mg/dL (74-106); POTASSIUM 3.3 mmol/L (3.4-5.0); SALICYLATE < 1.0 mg/dL; SODIUM 137 mmol/L (137-145); TOTAL PROTEIN 7.7 gm/dL (6.4-8.2)
[2020-09-03 22:52] LABS: COLLECTION METHOD CLEAN CATCH
[2020-09-03 23:07] LABS: TRICYCLIC ANTIDEPRESS URINE NEGATIVE
[2020-09-03 23:10] LABS: MUCOUS Present /lpf; PH 5 (5-8); SQUAMOUS EPITHELIAL 20-50 /hpf; URINE APPEARANCE Cloudy; URINE BACTERIA Rare /hpf; URINE BILIRUBIN Positive (NEGATIVE); URINE BLOOD Negative (NEGATIVE); URINE COLOR Amber; URINE GLUCOSE Negative (NEGATIVE); URINE KETONE 1+ (NEGATIVE); URINE LEUKOCYTE ESTERASE Negative (NEGATIVE); URINE NITRATE Negative (NEGATIVE); URINE PROTEIN(semi-quant) 2+ (NEGATIVE); URINE UROBILINOGEN >=4.0 mg/dL (NEGATIVE)
[2020-09-04 10:05] VITALS: BP 116/60; TEMP 97.6
[2020-09-04 10:55] VITALS: PULSE 92
== END 2020-09-04 10:55 ==
LOC: COL.ER 21:19
PROVIDERS: Nurse Practitioner Primary Care
DX: F22 Delusional disorders (principal); E03.9 Hypothyroidism, unspecified; M10.9 Gout, unspecified; K21.9 Gastro-esophageal reflux disease without esophagitis; F17.210 Nicotine dependence, cigarettes, uncomplicated; Z20.822 Contact with and (suspected) exposure to COVID-19; Z88.5 Allergy status to narcotic agent; Z88.8 Allergy status to other drugs, medicaments and biological substances; Z79.51 Long term (current) use of inhaled steroids; Z79.890 Hormone replacement therapy

== ENCOUNTER 2020-10-18 22:55 | Inpatient (IN) | payer MEDICARE ==
[~2020-10-18] VITALS: Ht 177.8 cm; Wt 65.9 kg
--- NOTE | 2020-10-19 00:55 | NUR ---
CONY TRANSFER FROM [facility]. PATIENT S/P OF FALL ON WEDNESDAY AND FRACTURE RIGHT HIP. PATIENT ALERT AND ORIENTED X4. VITAL SIGNS STABLE. ABDOMENT VERY DISTENDED AND HARD. PATIENT HAS HX OF CIRRHOSIS OF THE LIVER AND HAVE PARACENTESIS EVERY TWO WEEKS. STEVENS CATHETER PLACE UPON ARRIVAL TO UNIT. MINIMAL TAYE COLOR URINE IN BAG. RIGHT HIP WITH SOME SWOLLEN NO BRUISING NOTED. FALL PRECAUTION IN BED. BED LOW AND LOCKED. BED ALARM ON. WILL CONTINUE TO MONITOR.
[2020-10-19 01:18] VITALS: BP 118/81; PULSE 108; TEMP 99
[2020-10-19] MEDS ORDERED: INCRUSE EL62.5 MCG/A IH (01:25)
[2020-10-19 01:38] LABS: COLLECTION METHOD CLEAN CATCH
[2020-10-19 01:47] LABS: INR 1.2 (0.8-3.0); PROTHROMBIN TIME 13.2 SECONDS (9.7-12.8)
[2020-10-19 01:48] LABS: MUCOUS Present /lpf; PH 5 (5-8); SQUAMOUS EPITHELIAL 0-2 /hpf; URINE APPEARANCE Hazy; URINE BACTERIA None Seen /hpf; URINE BILIRUBIN Positive (NEGATIVE); URINE BLOOD Negative (NEGATIVE); URINE COLOR Amber; URINE GLUCOSE Negative (NEGATIVE); URINE KETONE Negative (NEGATIVE); URINE LEUKOCYTE ESTERASE Negative (NEGATIVE); URINE NITRATE Negative (NEGATIVE); URINE PROTEIN(semi-quant) 1+ (NEGATIVE)
[2020-10-19 01:52] LABS: CALCIUM 8.2 mg/dL (8.4-10.2); CREATININE, serum 0.71 (0.52-1.25); MAGNESIUM 1.5 mg/dL (1.6-2.3); POTASSIUM 3.3 mmol/L (3.4-5.0)
[2020-10-19 01:54] LABS: TRICYCLIC ANTIDEPRESS URINE NEGATIVE
[2020-10-19 01:59] LABS: PRE ALBUMIN 11.8 mg/dL (17.6-36.0)
--- NOTE | 2020-10-19 03:27 | NUR ---
NEW IV 22G TO LFA PLACE. POTASSIUM AND MAGNESIUM REPLACE. UA SENT IVF NS@60ML/HR INFUSING. WILL CONTINUE TO MONITOR.
[2020-10-19 04:34] VITALS: BP 121/73; PULSE 97; TEMP 98.5
[2020-10-19 07:14] LABS: BASO % 0.4 % (0.0-2.0); GRAN # 2.9 (1.4-6.5); GRAN % 57.8 % (42.2-75.2); HEMOGLOBIN 11.6 g/dl (12.5-16.0); LYMPH # 1.6 (1.2-3.4); LYMPH % 32.4 % (20.0-51.0); MEAN CELL VOLUME 89 fl (80.0-100.0); MEAN CORPUSCULAR HEMOGLOBIN 30 pg (27.0-31.0); MEAN CORPUSCULAR HGB CONC 33 g/dl (33.0-37.0); MEAN PLATELET VOLUME 9.2 fl (7.4-10.4); MONO # 0.5 (0.1-0.6); MONO % 9.2 % (1.7-9.3); PLATELET COUNT 175 K/mm3 (130-400); REDCELL DISTRIBUTION WIDTH-CV 16.2 % (11.5-14.5)
[2020-10-19 07:17] LABS: HEMATOCRIT 34.7 % (37.0-47.0)
[2020-10-19 07:20] LABS: CALCIUM 8.3 mg/dL (8.4-10.2); CREATININE, serum 0.68 (0.52-1.25); MAGNESIUM 2.3 mg/dL (1.6-2.3); POTASSIUM 3.6 mmol/L (3.4-5.0)
[2020-10-19 07:41] VITALS: BP 117/77; PULSE 101; TEMP 98.1
--- NOTE | 2020-10-19 08:00 | NUR ---
PATIENT IS A&O. VSS WITH TELE INPLACE. PATIENT C/O NAUSEA & PAIN. GAVE PRN ZOFRAN & DILAUDID. RLE IS SLIGHTLY EXTERNALLY ROTATED. ICE PACK TO RIGHT HIP. POSITIVE PEDAL PULSES TO BLE. STEVENS TO DD WITH LARGE AMOUNTS OF CLEAR YELLOW URINE NOTED. IV FLUIDS INFUSING VIA PUMP INTO RIGHT FORARM. NPO FOR POSSIBLE SURGERY, SEE CONSULTS. PATIENT GETS REGULAR PARACENTESIS. NOTED JAUNDICE COLOR, THIN BODY STATURE, AND POOR PERSONAL HYGIENE. PATIENT ALSO HAD POSITIVE UDS BUT DENIES DRUG OR ALCOHOL ABUSE. HEAD TO TOE ASSESSMENT COMPLETE. NO OTHER NEEDS. CALL LIGHT IN REACH.
--- NOTE | 2020-10-19 09:00 | NUR ---
AT BEDSIDE, SEE ORDERS.
[2020-10-19 12:00] VITALS: BP 126/82; PULSE 90; TEMP 98.1
--- NOTE | 2020-10-19 14:07 | NUR ---
Plan is Home VS Skilled care Assessment: SW met with patient in room about care. Patient reports that she has a common law-marriage with Monrtell Berg . Gregory reports that they reside locally and an alternate contact is her Father Eddi . Patient reports that she uses [facility] for medications without difficulty. Patient reports that she has PCP Dr. Coon but has not seen in a while due to not being about to get in for an appointment. Paitient report that she also see Dr Toledo. Patient reports the following DME, can crutches wheelchair, an walker masood bedside commode. Patient reports that she has another DX that affects walker. Patient reports that she may also like to do IPR. Action: SW educated on resources, and IPR or skilled consult. Waiting to put in consult for IPR or skilled because patient is still pending surgery. Unknown needs, waiting on PT/Ot notes after surgery. Will follow.
[2020-10-19 16:00] VITALS: BP 120/72; PULSE 101; TEMP 98.1
--- NOTE | 2020-10-19 19:00 | NUR ---
REPORT RECEIVED FROM THE ONGOING NURSE. PATIENT ALERT AND ORIENT, VITAL SIGN STABLE. STARTED ON ROXYCODONE FOR PAIN MANAGEMENT. PATIENT TOLERATED LOW SODIUM DIET. PATIENT RESTING IN BED AT THIS TIME. WILL CONTINUE TO MONITOR.
[2020-10-19 19:46] VITALS: BP 113/68; PULSE 105; TEMP 98.5
[2020-10-20 00:40] VITALS: BP 118/53; PULSE 100; TEMP 98.2
[2020-10-20 03:23] VITALS: BP 111/66; PULSE 87; TEMP 98.3
[2020-10-20 06:27] LABS: HEMOGLOBIN 11.7 g/dl (12.5-16.0); MEAN CELL VOLUME 91 fl (80.0-100.0); MEAN CORPUSCULAR HEMOGLOBIN 30 pg (27.0-31.0); MEAN CORPUSCULAR HGB CONC 33 g/dl (33.0-37.0); PLATELET COUNT 161 K/mm3 (130-400); RED BLOOD COUNT 3.89 M/mm3 (4.10-5.30); REDCELL DISTRIBUTION WIDTH-CV 16.2 % (11.5-14.5)
[2020-10-20 06:35] LABS: ALBUMIN 2.5 gm/dL (3.5-5.0); BILIRUBIN,TOTAL 0.6 mg/dL (0.0-1.0); CALCIUM 8.4 mg/dL (8.4-10.2); CREATININE, serum 0.8 (0.52-1.25); MAGNESIUM 1.7 mg/dL (1.6-2.3); TOTAL PROTEIN 6.1 gm/dL (6.4-8.2)
[2020-10-20 06:36] LABS: INR 1.2 (0.8-3.0); PROTHROMBIN TIME 13.2 SECONDS (9.7-12.8)
[2020-10-20 06:39] LABS: HEMATOCRIT 35.5 % (37.0-47.0)
[2020-10-20 07:17] LABS: ANISOCYTOSIS 1+; EOSINOPHIL 2 % (0-4); LYMPHOCYTE 45 % (20.0-51.0); NEUTROPHILS 47 % (42.0-75.2); PLATELET ESTIMATE NORMAL (NORMAL); SCHISTOCYTES 1+
--- NOTE | 2020-10-20 08:00 | NUR ---
PATIENT IS A&O. VSS WITH TELE INPLACE. PATIENT RESTING UP IN BED WITH PILLOW UNDER RLE KNEE AND ICE PACK TO RIGHT HIP. POSITIVE PEDAL PULSES TO BLE. STEVENS TO DD WITH LARGE AMOUNTS OF CLEAR YELLOW URINE NOTED. NO C/O N/V AT THIS TIME. RIGHT FORARM IV TO INT. PATIENT GETS REGULAR PARACENTESIS. NOTED JAUNDICE COLOR, THIN BODY STATURE, AND POOR PERSONAL HYGIENE. PATIENT ALSO HAD POSITIVE UDS ON ADMIT BUT DENIES DRUG OR ALCOHOL ABUSE. HEAD TO TOE ASSESSMENT COMPLETE. AM MEDS GIVEN. NO OTHER NEEDS. CALL LIGHT IN REACH.
[2020-10-20 08:25] VITALS: BP 107/66; PULSE 102; TEMP 98.6
[2020-10-20 12:24] VITALS: BP 120/86; PULSE 104; TEMP 98.3
[2020-10-20 15:30] VITALS: BP 111/59; PULSE 100; TEMP 98.7
[2020-10-20 19:44] VITALS: BP 118/81; PULSE 75; TEMP 98.6
--- NOTE | 2020-10-20 20:00 | NUR ---
Report received, assumed care for manufacturing shift supervisor. Assessment complete. A&Ox3. Denies nausea/shortness of breath. VS stable. Rating pain 3/10 on pain scale-described as constant ache with intermittent cramping. States pain is tolerable-received oxycodone at 1900. Plan of care discussed for this shift to include NPO@0000/HS meds/pain control/calling for questions/concerns. Verbalizes understanding/denies needs. Call light in reach. Will monitor.
[2020-10-21] VITALS (17 sets, daily range): BP systolic 88–113; BP diastolic 54–75; PULSE 73–99; TEMP 97.6–98.6
[2020-10-21 07:00] LABS: HEMATOCRIT 39.9 % (37.0-47.0); HEMOGLOBIN 13.1 g/dl (12.5-16.0); MEAN CELL VOLUME 91 fl (80.0-100.0); MEAN CORPUSCULAR HEMOGLOBIN 30 pg (27.0-31.0); MEAN CORPUSCULAR HGB CONC 33 g/dl (33.0-37.0); MEAN PLATELET VOLUME 9.1 fl (7.4-10.4); PLATELET COUNT 198 K/mm3 (130-400)
[2020-10-21 07:03] LABS: CALCIUM 8.7 mg/dL (8.4-10.2); CREATININE, serum 0.86 (0.52-1.25); MAGNESIUM 1.8 mg/dL (1.6-2.3); POTASSIUM 4.2 mmol/L (3.4-5.0)
--- NOTE | 2020-10-21 07:55 | NUR ---
PT PLEASANT, AOX4, REPORTS PAIN 6.5/10 IN R HIP, EDUCATED ON PARACENTESIS AT 0830, CONSENT OBTAINED, PT ASSESSMENT PERFORMED, PT LAYING SUPINE, NO BRUISING OR SWELLING AT R HIP FX SITE, OG HOSE APPLIED TO LLE, PT REPORTING ABD PRESSURE, STEVENS DRAINGING, TYMPANY AUSCULTATED IN ABD, MEDS HELD UNTIL AFTER PARACENTESIS. PT EAGER FOR R HIP REPAIR AND AWARE IT WILL ONLY OCCUR IF VITAL SIGNS REMAIN STABLE AFTER PARACENTESIS. CALL LIGHT WITHIN REACH, PT LEFT IN ROOM WITH LIGHTS OFF PER PT REQUEST, NO OTHER NEEDS AT THIS TIME.
--- NOTE | 2020-10-21 10:21 | NUR ---
7.8L removed from pt, pt reporting feeling dizzy and lightheaded, post op vitals being taken, passed on amount taken off and pt symptoms to NGUYEN Wayne and physician.
--- NOTE | 2020-10-21 10:46 | NUR ---
Diamond Selector met with the patient to follow up. The patient to tentatively have surgery for hip repair later this day. The patient may go home but is open to post acute rehab if needed. *Discharge disposition: Patient awaiting surgery and to see how she fairs with PT/OT after surgery. Home but open to post acute rehab.
--- NOTE | 2020-10-21 12:24 | NUR ---
PT TAKEN DOWN FOR HIP ARTHROPLASTY
--- NOTE | 2020-10-21 16:28 | NUR ---
PT RETURNED FROM PROCEDURE, HOOKED UP TO POST OP VITALS. PT REPORTING BURNING AT INCISION SITE, PT CAN FEEL NUMBNESS/TINGING IN L FOOT BUT DENIES SENSATION IN R FOOT.
--- NOTE | 2020-10-21 17:58 | NUR ---
PT ABLE TO ROLL ANKLE AND WIGGLE TOES, CAN FEEL SENSATION IN R FOOT, CLAIMING BURNING SENSATION IN R HIP, ICE APPLIED AND DRESSING CDI, PT TAKING SIPS OF LIQUIDS AT THIS TIME. PT NOT REQUESTING PAIN MEDICATION AT THIS TIME, NO OTHER NEEDS AT THIS TIME.
--- NOTE | 2020-10-21 21:00 | NUR ---
PATIENT WAS CALM IN THE ROOM.DUE MEDS GIVEN ASSEESSMENT DONE.R HIP DRESSING IS CDI.NO OTHER NEEDS AT THIS TIME.
[2020-10-22] VITALS (8 sets, daily range): BP systolic 90–129; BP diastolic 49–69; PULSE 91–104; TEMP 97.1–98.4
--- NOTE | 2020-10-22 04:54 | NUR ---
PATIENT HAD A CALM NIGHT PAIN CONTROL PER JUL.R HIP DRESSING IS CDI.TO SIT OUT OF BED TODAY.NO OTHER NEEDS AT THIS TIME.
[2020-10-22 06:45] LABS: BASO % 0.4 % (0.0-2.0); EOS % 0.4 % (0-4.0); GRAN # 3.3 (1.4-6.5); GRAN % 64.4 % (42.2-75.2); HEMOGLOBIN 11.9 g/dl (12.5-16.0); LYMPH # 1.4 (1.2-3.4); LYMPH % 26.6 % (20.0-51.0); MEAN CELL VOLUME 91 fl (80.0-100.0); MEAN CORPUSCULAR HEMOGLOBIN 30 pg (27.0-31.0); MEAN CORPUSCULAR HGB CONC 33 g/dl (33.0-37.0); MEAN PLATELET VOLUME 9.3 fl (7.4-10.4); MONO # 0.4 (0.1-0.6); MONO % 7.8 % (1.7-9.3); PLATELET COUNT 173 K/mm3 (130-400); REDCELL DISTRIBUTION WIDTH-CV 15.8 % (11.5-14.5)
[2020-10-22 06:48] LABS: HEMATOCRIT 36.4 % (37.0-47.0)
[2020-10-22 06:55] LABS: ALBUMIN 2.7 gm/dL (3.5-5.0); BILIRUBIN,TOTAL 0.8 mg/dL (0.0-1.0); CALCIUM 8.5 mg/dL (8.4-10.2); CREATININE, serum 0.86 (0.52-1.25); POTASSIUM 3.8 mmol/L (3.4-5.0); TOTAL PROTEIN 5.9 gm/dL (6.4-8.2)
--- NOTE | 2020-10-22 08:00 | NUR ---
PATIENT IS A&O. VSS. PATIENT GIVEN PAIN MEDS BEFORE SHIFT CHANGE AND IS RESTING COMFORTABLY IN BED. RIGHT HIP DRESSING IS CD&I WITH OCCLUSIVE TAPE AND ICE PACK INPLACE. TEDS TO BLE. SCD'S CURRENTLY OFF. POSITIVE PEDAL PULSES. STEVENS TO DD WITH MOD AMOUNTS OF CLEAR YELLOW URINE NOTED. NO C/O N/V. RIGHT WRIST IV TO INT. BREAKFAST TRAY AT BEDSIDE. HEAD TO TOE ASSESSMENT COMPLETE. CALL LIGHT IN REACH. NO OTHER NEEDS AT THIS TIME.
--- NOTE | 2020-10-22 09:36 | NUR ---
Final Block Press Operator met with the patient to discuss Medicare.gov's post acute rehab options. The patient's first choice is [facility] and second choice is [facility]. Referrals sent. Awaiting screens. *Discharge disposition: Post acute rehab. [facility] or [facility]. Awaiting screens.
--- NOTE | 2020-10-22 10:39 | NUR ---
First visit from the assistant chief train dispatcher. No needs right now.
--- NOTE | 2020-10-22 10:55 | NUR ---
PT IN ROOM WORKING WITH PATIENT WHEN SEVERAL PILLS FELL OUT OF HER "HUSBANDS COAT". PILLS PLACED IN A BAG, ALONG WITH THE COAT AND PATIENT'S PURSE IN THE CLOSET OUT OF THE PATIENT'S REACH. PATIENT HAS A KNOWN HX OF DRUG USE. WILL MONITOR.
--- NOTE | 2020-10-22 11:25 | NUR ---
PATIENT REQUESTING SOMETHING FOR PAIN. RATES PAIN IN RLE AT 5-6 ON PAIN SCALE. GAVE PRN ROXICODONE.
--- NOTE | 2020-10-22 14:35 | NUR ---
Daily, IPR Director reports she is accepted to [facility]. Still awaiting screen for [facility].
--- NOTE | 2020-10-22 18:50 | NUR ---
REPORTED OFF TO JO CHOU
[2020-10-23 04:09] VITALS: BP 99/61; PULSE 96; TEMP 98.2
--- NOTE | 2020-10-23 04:24 | NUR ---
PATIENT ALERT AND ORIENTED. POD#2 R HIP REPAIR. VITAL SIGH STALBE. PAIN MANAGE WITH OXYCODONE WITH GOOD EFFECT. RIGHT HIP DRESSING CLEAN DRY AND INTACT. STEVENS TO GRAVIT WITH CLEAR YELLOW URINE. TOLERATED GENERAL DIET. WILL CONTINUE TO MONITOR.
[2020-10-23 06:02] LABS: BASO % 0.3 % (0.0-2.0); EOS % 0.3 % (0-4.0); GRAN # 4.2 (1.4-6.5); GRAN % 66.4 % (42.2-75.2); HEMOGLOBIN 10.5 g/dl (12.5-16.0); LYMPH # 1.6 (1.2-3.4); LYMPH % 24.6 % (20.0-51.0); MEAN CELL VOLUME 89 fl (80.0-100.0); MEAN CORPUSCULAR HEMOGLOBIN 30 pg (27.0-31.0); MEAN CORPUSCULAR HGB CONC 34 g/dl (33.0-37.0); MEAN PLATELET VOLUME 9.6 fl (7.4-10.4); MONO # 0.5 (0.1-0.6); MONO % 8.1 % (1.7-9.3); PLATELET COUNT 174 K/mm3 (130-400); RED BLOOD COUNT 3.46 M/mm3 (4.10-5.30); REDCELL DISTRIBUTION WIDTH-CV 15.9 % (11.5-14.5)
[2020-10-23 06:03] LABS: HEMATOCRIT 30.9 % (37.0-47.0)
[2020-10-23 06:14] LABS: ALBUMIN 2.6 gm/dL (3.5-5.0); BILIRUBIN,TOTAL 0.5 mg/dL (0.0-1.0); CALCIUM 8.4 mg/dL (8.4-10.2); CREATININE, serum 1.19 (0.52-1.25); POTASSIUM 4.1 mmol/L (3.4-5.0); TOTAL PROTEIN 5.6 gm/dL (6.4-8.2)
[2020-10-23 08:00] VITALS: BP 101/56; PULSE 93; TEMP 98
[2020-10-23] MEDS ORDERED: OSCAL 500 TAB500 MG PO (08:35)
[2020-10-23] MEDS ORDERED: ROXICODONE 55 MG/TAB PO (08:35)
[2020-10-23] MEDS ORDERED: ASPI325T6 PO (08:35)
[2020-10-23] MEDS ORDERED: DUO-KAPS1 CAP PO (08:37)
[2020-10-23] MEDS ORDERED: SENOKOT S 50 MG1 TAB PO (08:37)
[2020-10-23] MEDS ORDERED: VITAMIN C500 MG PO (08:37)
[2020-10-23] MEDS ORDERED: COLACE 100100 MG/CAP PO (08:37)
--- NOTE | 2020-10-23 10:00 | NUR ---
Patient is lying in bed, reyes was discontinued, dressing was changed, incision clean and dry.
[2020-10-23 11:46] VITALS: BP 103/55; PULSE 96; TEMP 98.3
--- NOTE | 2020-10-23 13:33 | NUR ---
Owen with [facility] reports they cannot accept the patient. SW met with the patient to discuss the denial. The patient is agreeable to going to [facility]. The patient to tentatively discharge today, Monday 10/23 to [facility] for post acute rehab. There are no additional needs at this time.
--- NOTE | 2020-10-23 13:45 | NUR ---
PATIENT DISCHARGED TO IPR, REPORT GIVEN TO IPR NURSE.
--- NOTE | 2020-10-23 14:20 | NUR ---
PATIENT DISCHARGING TO IPR. GAVE REPORT TO JO VELASCO. IV DC'S. PATIENT FINISHING LUNCH AND THEN WILL MOVE TO IPR UNIT.
== END 2020-10-23 14:45 | DRG 522 ==
LOC: MEDICAL 22:55 → SURG 10-19 00:04
PROVIDERS: Internal Medicine Gastroenterology; Orthopaedic Surgery; Physician Assistant; Student in an Organized Health Care Education/Training Program; ADMIT Hospitalist
PROC: 0SR90J9 Replacement of Right Hip Joint with Synthetic Substitute, Cemented, Open Approach (ICD-10-PCS; principal; 2020-10-21 13:15)
DX: S72.001A Fracture of unspecified part of neck of right femur, initial encounter for closed fracture (principal); E87.1 Hypo-osmolality and hyponatremia; E46 Unspecified protein-calorie malnutrition; E87.6 Hypokalemia; E83.42 Hypomagnesemia; K70.31 Alcoholic cirrhosis of liver with ascites; E03.9 Hypothyroidism, unspecified; F41.9 Anxiety disorder, unspecified; D64.9 Anemia, unspecified; F44.9 Dissociative and conversion disorder, unspecified; K21.9 Gastro-esophageal reflux disease without esophagitis; M10.9 Gout, unspecified; K58.9 Irritable bowel syndrome, unspecified; G89.29 Other chronic pain; M54.9 Dorsalgia, unspecified; G25.81 Restless legs syndrome; I95.9 Hypotension, unspecified; F10.10 Alcohol abuse, uncomplicated; Z87.440 Personal history of urinary (tract) infections; D69.6 Thrombocytopenia, unspecified; F17.210 Nicotine dependence, cigarettes, uncomplicated
CPT/HCPCS: 99223-AI; 99232-AI; 99239; A4314; A9284; C1776; C9113; J0690; J1170; J2250; J2405; J2704; J3010; J3475; J7030; P9047

== ENCOUNTER 2020-10-23 14:45 | Inpatient (IN) | payer MEDICARE ==
[~2020-10-23] VITALS: Ht 180.3 cm; Wt 64.2 kg
[~2020-10-23 14:45] MED LIST changes: +ASPI325T6 PO; +DUO-KAPS1 CAP PO; +OSCAL 500 TAB500 MG PO; +ROXICODONE 55 MG/TAB PO; +SENOKOT S 50 MG1 TAB PO; +VITAMIN C500 MG PO
[2020-10-23 16:54] VITALS: BP 117/62; PULSE 72; TEMP 98.4
--- NOTE | 2020-10-23 20:47 | NUR ---
This nurse received report from JO Thomas at Surgical and patient was then tranferred from Surgical unit to [facility] Room 339. After she was settled in her room this nurse found her walking in [address] using her walker trying to get pillows from the linen rack in the hallway. This nurse redirected her patient to her room and educated her on the need to use the call light prior to getting up. She voiced understanding. At the time patient's alarm had not been set on her bed. This nurse made sure to place her alarm on her bed. Patient currently resting in bed, call light in reach and bed alarm set.
--- NOTE | 2020-10-23 22:39 | NUR ---
This RN, Agency Service Representative, received call from patient's RN regarding medications found in patient's room and taken to pharmacy earlier in the day. JO Richey received call from Pharmacy that they were unable to identify pills, and voiced concern additional meds may be in patient room. This RN and JO Richey notified patient that pharmacy was unable to identify pills, and informed patient that all pills in the hospital must be ordered by the patient's doctor and administered by a nurse. Patient voiced understanding and stated the pills were her 's medication. Patient stated she kept her husbands jacket to sleep with at night. Patient then pulled out two folded paper towels out of the jacket pocket with blue tablets and white tablets. Pills and paper towels were placed in a bag and taken to pharmacy by this RN. Patient voiced understanding that medications would be taken to pharmacy for her safety and staff safety. She then went through her purse at bedside, stating she did not have any additional medications.
[2020-10-24 04:58] VITALS: BP 102/70; PULSE 107; TEMP 98.5
--- NOTE | 2020-10-24 14:30 | NUR ---
Initial visit; Patient thanked Editorial Director for looking in on her and offering God's blessings. Patient eating, Editorial Director will follow up.
--- NOTE | 2020-10-24 14:39 | NUR ---
The patient is new to [facility]. [facility] met with the patient to complete intake. The patient lives in [place] with her life partner Montrell Berg. The patient has crutches, wheelchair, commode. The patient does not have a walker. The patient's PCP is Dr. Coon but he has not seen the patient yet. The patient see Dr. Joyner. The patient does not have advanced directives. SW to continue to follow to ensure the safest discharge disposition.
[2020-10-24 16:19] VITALS: BP 110/66; PULSE 106
--- NOTE | 2020-10-24 18:48 | NUR ---
Patient resting in bed at this time. Patient is alert and oriented, answers questions appropirately. Patient has denied pain today, states that she is managing well without medications today. Patient requests a PRN laxative with HS meds, will pass on to manager shift nurse. Patient denies further needs, call light within reach, bed alarm on.
--- NOTE | 2020-10-24 21:00 | NUR ---
PT UP TO BR. HAD BM. SEE MAR FOR PAIN MED FOR RT HIP PAIN. ICE PACKS TO RT HIP. PT AMB WELL WITH SBA. CALL LIGHT IN REACH. BED ALARM SET.
[2020-10-25 05:16] VITALS: BP 114/70; PULSE 104; TEMP 98.4
[2020-10-25 06:20] LABS: HEMOGLOBIN 11.3 g/dl (12.5-16.0); MEAN CELL VOLUME 92 fl (80.0-100.0); MEAN CORPUSCULAR HEMOGLOBIN 30 pg (27.0-31.0); MEAN CORPUSCULAR HGB CONC 32 g/dl (33.0-37.0); MEAN PLATELET VOLUME 8.8 fl (7.4-10.4); PLATELET COUNT 258 K/mm3 (130-400); RED BLOOD COUNT 3.82 M/mm3 (4.10-5.30); REDCELL DISTRIBUTION WIDTH-CV 15.9 % (11.5-14.5)
[2020-10-25 06:27] LABS: INR 1.2 (0.8-3.0); PROTHROMBIN TIME 13.3 SECONDS (9.7-12.8)
[2020-10-25 06:38] LABS: BILIRUBIN,TOTAL 0.6 mg/dL (0.0-1.0); CALCIUM 8.8 mg/dL (8.4-10.2); CREATININE, serum 0.93 (0.52-1.25); MAGNESIUM 1.8 mg/dL (1.6-2.3); POTASSIUM 3.2 mmol/L (3.4-5.0); TOTAL PROTEIN 6.6 gm/dL (6.4-8.2)
[2020-10-25 06:44] LABS: HEMATOCRIT 35.1 % (37.0-47.0)
[2020-10-25 07:27] LABS: BAND 2 % (0-10); LYMPHOCYTE 41 % (20.0-51.0); NEUTROPHILS 52 % (42.0-75.2)
[2020-10-25 07:28] LABS: ANISOCYTOSIS 1+; PLATELET ESTIMATE NORMAL (NORMAL)
--- NOTE | 2020-10-25 07:35 | NUR ---
Patient resting in bed eating her breakfast awaiting therapy for the morning. Independent with eating. Denies questions at this time.
--- NOTE | 2020-10-25 09:44 | NUR ---
NGUYEN Flores called in reference to patient's pottasium being low at 3.2. She will review patient's meds and will look for changes.
[2020-10-25 16:13] VITALS: BP 102/68; PULSE 113; TEMP 97.9
--- NOTE | 2020-10-25 19:10 | NUR ---
RECEIVED CHANGE OF SHIFT REPORT FROM DAY SHIFT NURSE. PATIENT UP IN ROOM INDEPENDENTLY WITH NO REPORTED PROBLEMS OR CONCERNS.
--- NOTE | 2020-10-25 20:00 | NUR ---
UP IN ROOM WITH NO REPORTED PROBLEMS OR COMPLAINTS. CONTINUES TO USE WHEELED WALKER WITH NO REPORTED PROBLEMS. DENIES CHEST PAIN/SOA, DENIES NUMBNESS/TINGLING TO EXTREMITIES AT THIS TIME.
--- NOTE | 2020-10-26 00:16 | NUR ---
DENIES ANY NEEDS AT THIS TIME. CONTINUES TO BE UP IN ROOM PER SELF WITH NO REPORTED PROBLEMS. OBSERVED PATIENT LOOKING AT PERSONAL CELL PHONE WHILE LAYING IN BED.
[2020-10-26 05:10] VITALS: BP 101/59; PULSE 112; TEMP 97.6
--- NOTE | 2020-10-26 07:12 | NUR ---
CHANGE OF SHIFT REPORT GIVEN TODAY SHIFT NURSE, EMY OSORIO.
--- NOTE | 2020-10-26 09:22 | NUR ---
Patient up ambulating halls with therapy. Oxicodone for pain in preperation for therapy this am. Right hip aquacell dressing CDI. Ice pack off at this time. Reese hose off at this time. Patient hoping for a shower with therapy. Patient main complaint this am about her bowels. Colace & miralax per orders. Will continue to monitor closely.
--- NOTE | 2020-10-26 12:55 | NUR ---
Patient resting, eating lunch. Reports a good appetite. Denies the need for pain medication at this time. Will continue to monitor.
[2020-10-26 17:19] VITALS: BP 107/70; PULSE 108; TEMP 98.2
--- NOTE | 2020-10-26 17:59 | NUR ---
Patient resting in bed, signigficant other at bedside. She is slowing eating her dinner. She eats small frequent meals. She reports having a small Bm this afternoon & voiding frequently. She is thinking about a dulcolax supp. tonight.Will report off to night nurse
--- NOTE | 2020-10-26 18:55 | NUR ---
RECEIVED CHANGE OF SHIFT REPORT FROM DAY SHIFT NURSE. UP IN ROOM PER SELF WITH NO REPORTED PROBLEMS OR CONCERNS. SPOUSE IN ROOM, SLEEPING.
--- NOTE | 2020-10-26 23:05 | NUR ---
REQUESTED AND GIVEN MED FOR COMPLAINT OF NAUSEA, SEE MAR FOR MED GIVEN. PATIENT ALSO COMPLAINED OF HEADACHE THAT PATIENT ATTRIBUTED TO TENSION AND FATIGUE AND DENIED ANY OTHER NEEDS AT THIS TIME.
--- NOTE | 2020-10-27 02:27 | NUR ---
PATIENT SLEEPING WITH OBSERVED EVEN/NONLABORED BREATHING. DOES NOT WAKE WHEN ROOM ENTERED BY STAFF.
[2020-10-27 05:10] VITALS: BP 110/57; PULSE 103; TEMP 98.3
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
--- NOTE | 2020-10-27 07:09 | NUR ---
CHANGE OF SHIFT REPORT GIVEN TO DAY SHIFT NURSERICHIE RN.
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
--- NOTE | 2020-10-27 16:25 | NUR ---
PT HAS HAD UNEVENTFUL DAY, SHE HAS BEEN UP INDEPENDENTLY IN HER ROOM TO THE BATHROOM. PAIN HAS REMAINDED IN HER ROOM AND DENIES ANY NEEDS.
[2020-10-27 16:52] VITALS: BP 111/64; PULSE 107; TEMP 98.1
--- NOTE | 2020-10-27 18:45 | NUR ---
RECEIVED CHANGE OF SHIFT REPORT FROM DAY SHIFT NURSE. PATIENT UP IN ROOM AD ERIC WITH NO REPORTED PROBLEMS OR CONCERNS. AT BED SIDE, DENIES ANY NEEDS AT THIS TIME. REPORTS HAD X3 BM TODAY AND REPORTS "FEELS BETTER".
--- NOTE | 2020-10-28 03:21 | NUR ---
REQUESTED AND GIVEN MED FOR NAUSEA, REPORTED VOMITING, OBSERVED EMESIS OF UNDIGESTED FOOD IN TRASH CAN WELL LOOSE STOOL IN TOILET THAT PATIENT REPORTED HAD URGENCY SENSATION FOR PASSING STOOL. SEE MAR FOR MED GIVEN.
[2020-10-28 04:18] VITALS: BP 101/64; PULSE 96; TEMP 98.2
--- NOTE | 2020-10-28 07:07 | NUR ---
CHANGE OF SHIFT REPORT GIVEN TO DAY SHIFT NURSE, KRISTA OSORIO.
[2020-10-28 07:11] LABS: CALCIUM 8.9 mg/dL (8.4-10.2); CREATININE, serum 1.02 (0.52-1.25); POTASSIUM 4.2 mmol/L (3.4-5.0)
[2020-10-28 08:16] VITALS: BP 127/65; PULSE 103
--- NOTE | 2020-10-28 09:13 | NUR ---
Housekeeping reported that patient's toilet was clogged. This nurse removed toilet paper from the stool and then found two wash cloths in the bottom of the toilet that apparantly patient had used to wipe herself with. Patient denied the use of these wash cloths stating that she did not put them in the toilet. Patient was still educated on the need to only use toilet paper when wiping to prevent a clogged toilet. She voiced understanding. Will continue to monitor.
--- NOTE | 2020-10-28 09:50 | NUR ---
Left message for Dr. Coon's nurse to return call regarding setting up Discharge follow up appointment for patient. Awaiting a return call.
--- NOTE | 2020-10-28 09:55 | NUR ---
The team has set a discharge date for tomorrow, 10/29, with outpatient PT and they recommend a FWW. PAO met with the patient to review d/c plan and to discuss their recommendation. The patient is in agreement to the plan. She would like to get outpatient PT set up at [facility] on and go ahead and get the FWW from [facility]. PAO presented and read the IM form outloud to the patient. The patient verbalized understanding and gave PAO approval to sign the form on her behalf. PAO provided her with a copy. PAO contacted [facility] on and secured the patient an outpatient PT appointment there on Wednesday, 11/01, at 1400. PAO notified the patient's RN of the appointment. PAO contacted and faxed the FWW order to Cristian at [facility]. Awaiting delivery of FWW. PAO will need to fax the patient's d/c orders to [facility] on . .
--- NOTE | 2020-10-28 11:07 | NUR ---
Patient has a follow up appointment with Dr. Coon for 11/04/20 at 10:30 am. A call was placed to Dr. Joyner's office to see if patient already had an appointment scheduled after her discharge tomorrow. She does not at this time, but nurse will be calling me back after talking with Dr. Joyner this afternoon. Awaiting a return call.
--- NOTE | 2020-10-28 13:03 | NUR ---
Admission QIM scores were reviewed by the team. Code of 4 chosen for toilet hygiene was determined by team discussion to be the most usual performance for this patient during the assessment period. Code of 4 chosen for toileting transfers was determined by team discussion to be the most usual performance for this patient during the assessment period. Code of 3 chosen for lower body dressing was determined by team discussion to be the most usual performance for this patient during the assessment period. Code of 1 chosen for putting on/taking off footwear was determined by team discussion to be the most usual performance for this patient during the assessment period. Code of 6 chosen for rolling left to right was determined by team discussion to be the most usual performance before interventions for this patient during the assessment period. Code of 6 chosen for sit to lying was determined by team discussion to be the most usual performance for this patient during the assessment period. Code of 6 chosen for lying to sitting on side of bed was determined by team discussion to be the most usual performance for this patient during the assessment period. Code of 6 for sit to stand was determined by team discussion to be the most usual performance for this patient during the assessment period. Code of 4 for chair/bed to chair transfers was determined by team discussion to be the most usual performance for this patient during the assessment period. Code of 4 for car transfer was determined by team discussion to be the most usual performance for this patient during the assessment period. Code of 4 chosen for walk 10 feet was determined by team discussion to be the most usual performance for this patient during the assessment period.--Daily Frias,
--- NOTE | 2020-10-28 15:24 | NUR ---
Patient is independent in her room. Tolerating diet well. Denies questions at this time.
--- NOTE | 2020-10-28 15:37 | NUR ---
Patient's stopped by to visit patient this afternoon. Patient denies questions at this time.
[2020-10-28] MEDS ORDERED: PHENERGAN 25 TA25 MG PO (15:41)
[2020-10-28] MEDS ORDERED: ROXICODONE 55 MG/TAB PO (15:42)
[2020-10-28] MEDS ORDERED: K-DUR 10 MEQ T10 MEQ PO (15:45)
--- NOTE | 2020-10-28 16:15 | NUR ---
Patient resting in bed, call light in reach and independent in room. Removed aquacel to right hip with no drainage or redness observed. Area was left open to air as per orders. Will continue to monitor.
[2020-10-28 17:49] VITALS: BP 107/62; PULSE 107; TEMP 98.6
[2020-10-28 19:40] VITALS: BP 109/67; PULSE 109; TEMP 98.6
--- NOTE | 2020-10-28 21:11 | NUR ---
Rebecca is resting in bed with her phone. She is alert, awake and denies pain. She said she had pain meds not quite ago. She is with her tray and finish everything on it. Her room is lena messy with water on the floor. She requested hot water for she said she calms down with hot water at night. She is excited for tomorrow to get discharge. No concerns noted at this time. Continue to monitor.
[2020-10-28 23:23] VITALS: BP 108/56; PULSE 105; TEMP 98.2
[2020-10-29 04:39] VITALS: BP 109/61; PULSE 101; TEMP 98.6
--- NOTE | 2020-10-29 06:22 | NUR ---
Rebecca slept good last night. She asked for Roxicodone 2x in my shift and 1x of PRN phenergan. She used the ice bag/ cold compress in her right hip overnight. She is for discharge today.
--- NOTE | 2020-10-29 09:03 | NUR ---
PAO followed up with Elizabeth at [facility]. Elizabeth reports that they will have someone deliver the FWW to the patient's room before 1300 today. PAO notified the patient. The patient is to discharge back home with her life partner today, 10/29, with outpatient PT at [facility] on [address]. PAO faxed the patient's d/c orders to [facility] on [address]. No additional needs at this time.
--- NOTE | 2020-10-29 10:15 | NUR ---
Patient is independent in room and is up and moving and waiting to be discharged. Will continue to monitor patient throughout shift.
--- NOTE | 2020-10-29 11:05 | NUR ---
Patient c/o pain at 01/17. This nurse administered pain medication
--- NOTE | 2020-10-29 12:00 | NUR ---
Discharge teaching completed. Discussed discharge appointments, labs, and medications. Questions asked and answered. Patient verbalized understanding. Awaiting [facility] to deliver walker, patient states she will call her in order to begin loading her belongings. Patient denies needs, call light within reach.
--- NOTE | 2020-10-29 13:30 | NUR ---
Patient confirmed that all belongings were gathered. Was escorted to ED entrance where she entered a private vehicle.
--- NOTE | 2020-11-05 11:26 | NUR ---
On October 24, 2020 RM received 27.5 tablets (oblong/not scored/white & others powder blue) the white tab have TY on 1 side the blue have TY PM on one side. These are not identifiable as any OTC or prescription medication. These medications were kept sequestered in locked cabinet in a locked office. Today on November 05, 2020 @ 1130 the 27.5 tablets were handed over to [facility] Det. Marion Turk. No patient information was provided to dectective, only the tablets were surrendered. Shawnee Trimble MSN, RAIL BONDER-BC, Water Quality Assistant
== END 2020-10-29 13:30 | disposition home or self-care (01) | DRG 560 ==
PROVIDERS: Physician Assistant; ADMIT Internal Medicine
DX: S72.041D Displaced fracture of base of neck of right femur, subsequent encounter for closed fracture with routine healing (principal); E46 Unspecified protein-calorie malnutrition; E87.1 Hypo-osmolality and hyponatremia; K58.9 Irritable bowel syndrome, unspecified; Z68.20 Body mass index [BMI] 20.0-20.9, adult; J44.9 Chronic obstructive pulmonary disease, unspecified; K70.31 Alcoholic cirrhosis of liver with ascites; F10.10 Alcohol abuse, uncomplicated; E87.6 Hypokalemia; E83.42 Hypomagnesemia; D64.9 Anemia, unspecified; K21.9 Gastro-esophageal reflux disease without esophagitis; D69.6 Thrombocytopenia, unspecified; E03.9 Hypothyroidism, unspecified; M10.9 Gout, unspecified; G25.81 Restless legs syndrome; G89.29 Other chronic pain; M54.9 Dorsalgia, unspecified; F17.210 Nicotine dependence, cigarettes, uncomplicated; R11.0 Nausea; W01.0XXD Fall on same level from slipping, tripping and stumbling without subsequent striking against object, subsequent encounter; R26.89 Other abnormalities of gait and mobility; Z79.82 Long term (current) use of aspirin; Z79.899 Other long term (current) drug therapy; Z79.891 Long term (current) use of opiate analgesic; Z77.29 Contact with and (suspected) exposure to other hazardous substances; Z96.641 Presence of right artificial hip joint; Z73.6 Limitation of activities due to disability; Z87.440 Personal history of urinary (tract) infections; Z88.5 Allergy status to narcotic agent; Z88.6 Allergy status to analgesic agent
CPT/HCPCS: 99222-AI; 99231-AI; 99232-AI; 99239

== ENCOUNTER 2020-11-28 12:41 | Observation (INO) | payer MEDICARE ==
[~2020-11-28] VITALS: Ht 180.3 cm; Wt 69.0 kg
[~2020-11-28 12:41] MED LIST changes: +K-DUR 10 MEQ T10 MEQ PO
[2020-11-28 13:58] LABS: HEMOGLOBIN 10.7 g/dl (12.5-16.0); MEAN CELL VOLUME 87 fl (80.0-100.0); MEAN CORPUSCULAR HEMOGLOBIN 28 pg (27.0-31.0); MEAN CORPUSCULAR HGB CONC 33 g/dl (33.0-37.0); MEAN PLATELET VOLUME 9.2 fl (7.4-10.4); PLATELET COUNT 481 K/mm3 (130-400); REDCELL DISTRIBUTION WIDTH-CV 17.4 % (11.5-14.5)
[2020-11-28 14:11] LABS: HEMATOCRIT 32.9 % (37.0-47.0)
[2020-11-28 14:14] LABS: ALBUMIN 2.7 gm/dL (3.5-5.0); BILIRUBIN,TOTAL 0.6 mg/dL (0.0-1.0); CALCIUM 7.4 mg/dL (8.4-10.2); CREATININE, serum 1.14 (0.52-1.25); POTASSIUM 4.5 mmol/L (3.4-5.0); TOTAL PROTEIN 6.1 gm/dL (6.4-8.2)
[2020-11-28 14:17] LABS: INR 1.4 (0.8-3.0); PROTHROMBIN TIME 15.5 SECONDS (9.7-12.8)
[2020-11-28 14:23] LABS: BAND 5 % (0-10); LYMPHOCYTE 15 % (20.0-51.0); METAMYELOCYTE 1 % (0-0); NEUTROPHILS 75 % (42.0-75.2); PLATELET ESTIMATE NORMAL (NORMAL)
[2020-11-28] MEDS ORDERED: K-TAB20 PO (18:37)
--- NOTE | 2020-11-28 19:38 | NUR ---
Patient up from ER at 1820 by bed. Incontinent of bowel, assisted patient to change and clean up, bed bath provided. Changed into gown. Flagyl infusing to right AC IV on admit to floor. Patient denies pain at this time. Patient oriented to room. Denies further needs at this time. Reported off to overnight cashier.
[2020-11-28 21:13] VITALS: BP 89/51; PULSE 103; TEMP 98
[2020-11-28 22:10] VITALS: BP 96/53
--- NOTE | 2020-11-28 22:12 | NUR ---
SPOKE WITH HERON HILL REGARDING PTS B/P, OKAYED TO HOLD REBECCA WNIKLER.
[2020-11-29] VITALS (10 sets, daily range): BP systolic 98–116; BP diastolic 52–82; PULSE 97–108; TEMP 97.8–98.7
--- NOTE | 2020-11-29 01:36 | NUR ---
COLLECTED GI PANEL. PT STILL DRINKING PREP FOR COLONOSCOPY, RESULTS ARE STILL BLOODY WITH SOFT STOOL PRESENT.
--- NOTE | 2020-11-29 05:06 | NUR ---
NOTIFIED BY LAB PT HAS CAMPYLOBACTER IN HER GI PANEL. NOTIFIED HERON, NO NEW ORDERS.
--- NOTE | 2020-11-29 05:30 | NUR ---
OCTREOTIDE COMPLETE. IV FLAGYL INFUSING TO PATENT RT AC SITE.
--- NOTE | 2020-11-29 06:38 | NUR ---
PT UP TO BATHROOM, STOOL IS LIQUID, BLOODY, NO OBVIOUS SOLID MATTER NOTED.
[2020-11-29 07:36] LABS: MEAN CELL VOLUME 87 fl (80.0-100.0); MEAN CORPUSCULAR HGB CONC 32 g/dl (33.0-37.0); MEAN PLATELET VOLUME 9.2 fl (7.4-10.4); PLATELET COUNT 399 K/mm3 (130-400); RED BLOOD COUNT 3.35 M/mm3 (4.10-5.30); REDCELL DISTRIBUTION WIDTH-CV 17.3 % (11.5-14.5)
[2020-11-29 07:41] LABS: HEMOGLOBIN 9.4 g/dl (12.5-16.0); MEAN CORPUSCULAR HEMOGLOBIN 28 pg (27.0-31.0)
[2020-11-29 07:43] LABS: CALCIUM 7.3 mg/dL (8.4-10.2); CREATININE, serum 0.97 (0.52-1.25); POTASSIUM 3.7 mmol/L (3.4-5.0)
[2020-11-29 07:51] LABS: PRE ALBUMIN 9.6 mg/dL (17.6-36.0)
[2020-11-29 07:53] LABS: IRON,SERUM 66 ug/dL (35-150)
[2020-11-29 08:03] LABS: TOTAL IRON BINDING CAPACITY 136 ug/dL (265-497)
[2020-11-29 08:12] LABS: TSH w REFLEX 2.32 uIU/mL (0.465-4.680)
--- NOTE | 2020-11-29 08:20 | NUR ---
Patient in bed resting. Alert and oriented x 3. Assessment complete. Denies pain at this time. Patient denies additional needs at this time. States she is having clear liquid stools at this time.
[2020-11-29 08:21] LABS: BAND 2 % (0-10); EOSINOPHIL 1 % (0-4); LYMPHOCYTE 19 % (20.0-51.0); NEUTROPHILS 72 % (42.0-75.2); PLATELET ESTIMATE NORMAL (NORMAL)
[2020-11-29 08:22] LABS: HYPOCHROMIA 1+
[2020-11-29 08:23] LABS: ANISOCYTOSIS 1+
--- NOTE | 2020-11-29 08:45 | NUR ---
Patient to EGD by bed
--- NOTE | 2020-11-29 09:42 | NUR ---
Patient back from colonoscopy. Denies needs at this time.
--- NOTE | 2020-11-29 10:39 | NUR ---
Initial visit; Patient thanked Welder 2Nd Shift for looking in on her and offering comfort, empathy and prayer.
[2020-11-29] MEDS ORDERED: PHENERGAN 25 TA25 MG PO (11:55)
[2020-11-29] MEDS ORDERED: ZITHROMAX500 M2 PO (11:55)
[2020-11-29] MEDS ORDERED: FERROUS SU325 MG/TAB PO (12:01)
--- NOTE | 2020-11-29 12:04 | NUR ---
The patient's status was downgraded to observation. PAO and armature winder repair, Olena, met with the patient to notify. SW presented the LUO form. The patient signed the form and SW provided her with a copy.
--- NOTE | 2020-11-29 12:05 | NUR ---
Patient downgraded to OBS and is to discharge today. Discussed downgrade with patient and completed the LUO form with PAO Hicks. All questions answered and offered our contact info if more questions arise.
--- NOTE | 2020-11-29 15:20 | NUR ---
Discharge education provided to patient. Educated on when to call provider and follow up appointment. Educated on all new medications and medication safety. All questions answered. INT to RAC discontinued, catheter tip intact. Denies further needs at this time.
== END 2020-11-29 15:20 | disposition home or self-care (01) ==
LOC: COL.ER 12:41 → SURG 15:52
PROVIDERS: Emergency Medicine; ADMIT Internal Medicine
DX: K92.1 Melena (principal); A04.5 Campylobacter enteritis; K70.31 Alcoholic cirrhosis of liver with ascites; I85.10 Secondary esophageal varices without bleeding; K44.9 Diaphragmatic hernia without obstruction or gangrene; K21.9 Gastro-esophageal reflux disease without esophagitis; K29.30 Chronic superficial gastritis without bleeding; K58.0 Irritable bowel syndrome with diarrhea; E03.9 Hypothyroidism, unspecified; J44.9 Chronic obstructive pulmonary disease, unspecified; K76.6 Portal hypertension; E43 Unspecified severe protein-calorie malnutrition; M10.9 Gout, unspecified; G25.81 Restless legs syndrome; F10.11 Alcohol abuse, in remission; F17.210 Nicotine dependence, cigarettes, uncomplicated; D63.8 Anemia in other chronic diseases classified elsewhere; R10.9 Unspecified abdominal pain; G89.29 Other chronic pain; Z79.890 Hormone replacement therapy; Z79.899 Other long term (current) drug therapy; Z79.82 Long term (current) use of aspirin; Z80.3 Family history of malignant neoplasm of breast; Z80.0 Family history of malignant neoplasm of digestive organs
CPT/HCPCS: 99222-AI; C9113; G0378; J0696; J2354; J2704; J7030; J7040; Q9967

== ENCOUNTER 2020-12-26 19:03 | Emergency (ER) | payer MEDICARE ==
[~2020-12-26] VITALS: Ht 180.3 cm; Wt 65.9 kg
[~2020-12-26 19:03] MED LIST changes: +FERROUS SU325 MG/TAB PO; +ZITHROMAX500 M2 PO
[2020-12-26 20:08] LABS: MEAN CELL VOLUME 92 fl (80.0-100.0); MEAN CORPUSCULAR HGB CONC 32 g/dl (33.0-37.0); MEAN PLATELET VOLUME 9.4 fl (7.4-10.4); PLATELET COUNT 142 K/mm3 (130-400); RED BLOOD COUNT 2.96 M/mm3 (4.10-5.30); REDCELL DISTRIBUTION WIDTH-CV 19.1 % (11.5-14.5)
[2020-12-26 20:12] LABS: HEMATOCRIT 27.2 % (37.0-47.0); HEMOGLOBIN 8.6 g/dl (12.5-16.0); MEAN CORPUSCULAR HEMOGLOBIN 29 pg (27.0-31.0)
[2020-12-26 20:21] LABS: ALANINE AMINOTRANSFERASE 21 U/L (4-34); ALBUMIN 2.6 gm/dL (3.5-5.0); ALKALINE PHOSPHATASE 247 U/L (50-136); ANION GAP 7 mmol/L (7-16); AST,SGOT 78 U/L (15-37); BILIRUBIN,TOTAL < 0.1 mg/dL (0.0-1.0); BLOOD UREA NITROGEN 14 mg/dL (7-17); CARBON DIOXIDE 24 mmol/L (22-30); CHLORIDE 99 mmol/L (98-107); CREATININE, serum 1.18 (0.52-1.25); GLUCOSE 92 mg/dL (74-106); POTASSIUM 3.1 mmol/L (3.4-5.0); SODIUM 130 mmol/L (137-145); TOTAL PROTEIN 5.3 gm/dL (6.4-8.2)
[2020-12-26 20:40] LABS: HYPOCHROMIA 2+; LYMPHOCYTE 36 % (20.0-51.0); NEUTROPHILS 58 % (42.0-75.2)
[2020-12-26 20:41] LABS: ANISOCYTOSIS 2+; PLATELET ESTIMATE NORMAL (NORMAL)
[2020-12-26] MEDS ORDERED: PREDNISONE20 MG PO (22:45)
[2020-12-26] MEDS ORDERED: DOXYCYCLINE 10100 MG PO (22:45)
[2020-12-26 23:15] VITALS: BP 105/74; PULSE 93; TEMP 98.5
[2020-12-27 07:54] LABS: PATHOLOGY DIFF REVIEW OK
== END 2020-12-26 23:15 | disposition home or self-care (01) ==
LOC: COL.ER 19:03
PROVIDERS: Emergency Medicine
DX: U07.1 COVID-19 (principal); E87.6 Hypokalemia; J44.9 Chronic obstructive pulmonary disease, unspecified; M10.9 Gout, unspecified; E03.9 Hypothyroidism, unspecified; Z79.890 Hormone replacement therapy; Z79.899 Other long term (current) drug therapy
CPT/HCPCS: J1100; J7030

== ENCOUNTER 2020-12-27 12:28 | Outpatient (CLI) | payer MEDICARE ==
[2020-12-27] VITALS (7 sets, daily range): BP systolic 96–105; BP diastolic 62–71; PULSE 87–92; TEMP 99
[~2020-12-27 12:28] MED LIST changes: +DOXYCYCLINE 10100 MG PO; +PREDNISONE20 MG PO
== END 2020-12-27 13:45 | disposition home or self-care (01) ==
LOC: EUO 12:28
DX: Z23 Encounter for immunization (principal); Z20.822 Contact with and (suspected) exposure to COVID-19
CPT/HCPCS: M0243; Q0244

== ENCOUNTER 2021-01-05 21:20 | Observation (INO) | payer MEDICARE ==
[~2021-01-05] VITALS: Ht 180.3 cm; Wt 65.8 kg
[2021-01-05 22:52] LABS: GRAN # 3.7 (1.4-6.5); GRAN % 65.1 % (42.2-75.2); LYMPH # 1.5 (1.2-3.4); LYMPH % 25.7 % (20.0-51.0); MEAN CELL VOLUME 89 fl (80.0-100.0); MEAN CORPUSCULAR HGB CONC 32 g/dl (33.0-37.0); MEAN PLATELET VOLUME 8.8 fl (7.4-10.4); MONO # 0.5 (0.1-0.6); MONO % 8.1 % (1.7-9.3); PLATELET COUNT 263 K/mm3 (130-400); REDCELL DISTRIBUTION WIDTH-CV 17.7 % (11.5-14.5)
[2021-01-05 22:54] LABS: HEMATOCRIT 31.2 % (37.0-47.0); HEMOGLOBIN 9.9 g/dl (12.5-16.0); MEAN CORPUSCULAR HEMOGLOBIN 28 pg (27.0-31.0)
[2021-01-05 23:08] LABS: ALANINE AMINOTRANSFERASE 26 U/L (4-34); ALBUMIN 2.8 gm/dL (3.5-5.0); ALKALINE PHOSPHATASE 237 U/L (50-136); ANION GAP 6 mmol/L (7-16); AST,SGOT 35 U/L (15-37); BILIRUBIN,TOTAL 0.1 mg/dL (0.0-1.0); BLOOD UREA NITROGEN 14 mg/dL (7-17); CALCIUM 7.9 mg/dL (8.4-10.2); CARBON DIOXIDE 32 mmol/L (22-30); CHLORIDE 99 mmol/L (98-107); CREATININE, serum 1.02 (0.52-1.25); GLUCOSE 93 mg/dL (74-106); SODIUM 136 mmol/L (137-145); TOTAL PROTEIN 6.2 gm/dL (6.4-8.2)
[2021-01-05 23:37] LABS: TROPONIN-I < 0.012 ng/mL (0.000-0.035)
[2021-01-06 02:06] VITALS: BP 125/73; PULSE 84; TEMP 98.9
--- NOTE | 2021-01-06 03:38 | NUR ---
PT ADMIT FROM ER. TESTED POS FOR COVID LAST WEEK JUST FINISHED OUTPT ANTIBOTICS AND MED PRESCIBED, SINCE SHE WAS SICK W COVID DID NOT GET HER USUAL PARACENTESIS AND IS EXPERIENCE SOA DUE TO ABD BLOATING. PT GET THIS DONE EVERY WEEK TO 10 DAY AND USUALLY THE GET 7-10 LITERS OFF EACH TIME. CONT TO HAVE SOME COVID SYMPTOMS, DENIES SOA, OR BODY ACHES. LOSS OF TASTE AND SMELL, WEAK AND NO APPEITE. POC DISCUSSED. ROCHPHIN GIVEN PER ORDER. MED REC DONE. CALL LIGHT WI REACH.
--- NOTE | 2021-01-06 06:09 | NUR ---
Rested through the night without incident. Needs met.
[2021-01-06 08:35] LABS: BASO % 0.2 % (0.0-2.0); GRAN # 3.9 (1.4-6.5); GRAN % 70.8 % (42.2-75.2); LYMPH # 1.2 (1.2-3.4); LYMPH % 21.8 % (20.0-51.0); MEAN CELL VOLUME 89 fl (80.0-100.0); MEAN CORPUSCULAR HGB CONC 31 g/dl (33.0-37.0); MEAN PLATELET VOLUME 9.3 fl (7.4-10.4); MONO # 0.4 (0.1-0.6); MONO % 6.5 % (1.7-9.3); PLATELET COUNT 235 K/mm3 (130-400); RED BLOOD COUNT 3.33 M/mm3 (4.10-5.30); REDCELL DISTRIBUTION WIDTH-CV 17.5 % (11.5-14.5)
[2021-01-06 08:47] LABS: C-REACTIVE PROTEIN 0.5 mg/dL (0.0-0.9); CALCIUM 7.7 mg/dL (8.4-10.2); CREATININE, serum 0.88 (0.52-1.25); MAGNESIUM 1.5 mg/dL (1.6-2.3); POTASSIUM 3.5 mmol/L (3.4-5.0)
[2021-01-06 08:51] LABS: HEMATOCRIT 29.6 % (37.0-47.0); HEMOGLOBIN 9.2 g/dl (12.5-16.0); MEAN CORPUSCULAR HEMOGLOBIN 28 pg (27.0-31.0)
[2021-01-06 08:58] LABS: INR 1.2 (0.8-3.0); PROTHROMBIN TIME 13.4 SECONDS (9.7-12.8)
[2021-01-06 09:01] LABS: PARTIAL THROMBOPLASTIN TIME 23.9 SECONDS (26.0-37.0)
[2021-01-06 09:55] VITALS: BP 119/68; PULSE 96; TEMP 99
[2021-01-06 12:12] VITALS: BP 105/73; PULSE 97; TEMP 99
--- NOTE | 2021-01-06 13:30 | NUR ---
munitions worker spoke with patient to complete discharge planning assessment. Patient lives with her life partner and plans to return home upon discharge. Patient states that her primary care provider is Dr Coon. Patient states she wants to apply for Medicaid to help with her co pay and prescriptions. Worker requested that our financial counselor assist patient with applying for Medicaid. Patient states she will need help with payment of prescriptions upon discharge. Patient's partner helps her with her activities of daily living.
--- NOTE | 2021-01-06 15:00 | NUR ---
Radiology in for paracentesis
[2021-01-06 15:03] LABS: COLLECTION METHOD CLEAN CATCH
[2021-01-06 15:12] LABS: PH 7 (5-8); SQUAMOUS EPITHELIAL 0-2 /hpf; URINE APPEARANCE Clear; URINE BACTERIA None Seen /hpf; URINE BILIRUBIN Negative (NEGATIVE); URINE BLOOD Negative (NEGATIVE); URINE COLOR Straw; URINE GLUCOSE Negative (NEGATIVE); URINE KETONE Negative (NEGATIVE); URINE LEUKOCYTE ESTERASE Negative (NEGATIVE); URINE NITRATE Negative (NEGATIVE); URINE PROTEIN(semi-quant) Negative (NEGATIVE); URINE RBC 0-2 /hpf; URINE UROBILINOGEN Negative (NEGATIVE); URINE WBC 0-2 /hpf
[2021-01-06 15:30] LABS: TRICYCLIC ANTIDEPRESS URINE NEGATIVE
[2021-01-06 17:20] VITALS: BP 91/63; PULSE 101; TEMP 98
--- NOTE | 2021-01-06 19:11 | NUR ---
Discharge education provided to patient. Educated on when to call provider and setting up follow up appointment. All questions answered. INT to LAC discontinued, catheter tip intact. Patient will call when ride is here. Denies needs at this time. Will report off to mine shifter.
== END 2021-01-06 19:30 | disposition home or self-care (01) ==
LOC: COL.ER 21:20 → MEDICAL 23:34
PROVIDERS: Emergency Medicine; Nurse Practitioner Family; ADMIT Internal Medicine
DX: K70.31 Alcoholic cirrhosis of liver with ascites (principal); F10.11 Alcohol abuse, in remission; U07.1 COVID-19; J44.9 Chronic obstructive pulmonary disease, unspecified; R63.0 Anorexia; E46 Unspecified protein-calorie malnutrition; K58.9 Irritable bowel syndrome, unspecified; K21.9 Gastro-esophageal reflux disease without esophagitis; E87.6 Hypokalemia; E03.9 Hypothyroidism, unspecified; G25.81 Restless legs syndrome; D64.9 Anemia, unspecified; F17.210 Nicotine dependence, cigarettes, uncomplicated; M10.9 Gout, unspecified; Z79.899 Other long term (current) drug therapy; Z79.890 Hormone replacement therapy; Z79.51 Long term (current) use of inhaled steroids
CPT/HCPCS: G0378; J0696; J1940

== ENCOUNTER 2021-05-06 11:08 | Emergency (ER) | payer MEDICARE ==
[~2021-05-06] VITALS: Ht 180.3 cm; Wt 68.2 kg
[2021-05-06 11:15] VITALS: TEMP 97.7
[2021-05-06 11:47] LABS: BASO % 0.6 % (0.0-2.0); GRAN # 3.6 K/mm3 (1.4-6.5); GRAN % 66.5 % (42.2-75.2); HEMOGLOBIN 10.6 g/dl (12.5-16.0); LYMPH # 1.3 K/mm3 (1.2-3.4); LYMPH % 24.7 % (20.0-51.0); MEAN CELL VOLUME 82 fl (80.0-100.0); MEAN CORPUSCULAR HEMOGLOBIN 27 pg (27-31); MEAN CORPUSCULAR HGB CONC 33 g/dl (33.0-37.0); MONO # 0.4 K/mm3 (0.1-0.6); PLATELET COUNT 188 K/mm3 (130-400); RED BLOOD COUNT 3.94 M/mm3 (4.10-5.30); REDCELL DISTRIBUTION WIDTH-CV 17.8 % (11.5-14.5)
[2021-05-06 11:48] LABS: HEMATOCRIT 32.3 % (37.0-47.0)
[2021-05-06 11:53] LABS: INR 1.1 (0.8-3.0); PROTHROMBIN TIME 12.4 SECONDS (9.7-12.8)
[2021-05-06 11:55] LABS: PARTIAL THROMBOPLASTIN TIME 30.5 SECONDS (26.0-37.0)
[2021-05-06 12:06] LABS: ALANINE AMINOTRANSFERASE 22 U/L (0-55); ALBUMIN 3.1 gm/dL (3.5-5.0); ALKALINE PHOSPHATASE 203 U/L (40-150); ANION GAP 12 mmol/L (7-16); AST,SGOT 50 U/L (5-34); BILIRUBIN,TOTAL 1.1 mg/dL (0.2-1.2); BLOOD UREA NITROGEN 10 mg/dL (10-20); C-REACTIVE PROTEIN 0.28 mg/dL (0.00-0.50); CALCIUM 8.3 mg/dL (8.4-10.2); CARBON DIOXIDE 21 mmol/L (22-29); CHLORIDE 101 mmol/L (98-107); CREATINE KINASE 131 U/L (29-168); CREATININE, serum 1.13 mg/dL (0.57-1.11); GLUCOSE 101 mg/dL (70-99); LIPASE 12 U/L (8-78); POTASSIUM 4.4 mmol/L (3.5-4.5); SODIUM 134 mmol/L (136-145); TOTAL PROTEIN 6.4 gm/dL (6.2-8.1)
[2021-05-06 12:13] LABS: TROPONIN-I < 0.010 ng/mL (0.00-0.033)
[2021-05-06 12:26] LABS: LACTIC ACID 0.7 mmol/L (0.5-2.0)
[2021-05-06 15:08] VITALS: BP 110/69; PULSE 92
== END 2021-05-06 15:08 | disposition home or self-care (01) ==
LOC: COL.ER 11:08
PROVIDERS: Emergency Medicine
DX: R18.8 Other ascites (principal); J44.9 Chronic obstructive pulmonary disease, unspecified; E03.9 Hypothyroidism, unspecified; M10.9 Gout, unspecified; F17.200 Nicotine dependence, unspecified, uncomplicated; Z79.899 Other long term (current) drug therapy; Z79.890 Hormone replacement therapy; Z20.822 Contact with and (suspected) exposure to COVID-19
CPT/HCPCS: J2550

== ENCOUNTER 2021-05-23 07:03 | Day surgery (SDC) | payer MEDICARE, MEDICAID ==
[~2021-05-23] VITALS: Ht 180.3 cm; Wt 71.6 kg
--- NOTE | 2021-05-23 07:10 | NUR ---
Patient arrived into [facility] with her significant other. Patient states she had a paracentesis yesterday and wednesday. Patient prepped and ready for endo procedure.
[2021-05-23] MEDS ORDERED: CONSTULOSE 20G/30ML PO (07:32)
[2021-05-23 07:37] VITALS: BP 118/67; PULSE 108; TEMP 97.4
[2021-05-23] MEDS ORDERED: PROTONIX 40MG T40 MG PO (08:43)
[2021-05-23 08:51] VITALS: BP 140/70; PULSE 91; TEMP 97.4
--- NOTE | 2021-05-23 08:51 | NUR ---
Back from EGD. Alert and oriented. Ambulated to chair with stand by assist
[2021-05-23 09:06] VITALS: BP 97/75; PULSE 77; TEMP 97.4
[2021-05-23 09:21] VITALS: BP 92/74; PULSE 83; TEMP 97.4
[2021-05-23 09:50] VITALS: BP 98/72; PULSE 78; TEMP 97.4
--- NOTE | 2021-05-23 09:50 | NUR ---
Dr. Joyner in to see pt. VSS. INT discontinued intact. Discharge instructions given. Transferred to private car by markel
== END 2021-05-23 12:58 | disposition home or self-care (01) ==
LOC: SDCO 07:03
DX: K74.69 Other cirrhosis of liver (principal); K29.71 Gastritis, unspecified, with bleeding; K76.6 Portal hypertension; K21.9 Gastro-esophageal reflux disease without esophagitis; E78.5 Hyperlipidemia, unspecified; G89.29 Other chronic pain; M19.90 Unspecified osteoarthritis, unspecified site; M54.9 Dorsalgia, unspecified; M10.9 Gout, unspecified; E03.9 Hypothyroidism, unspecified; D64.9 Anemia, unspecified; R18.8 Other ascites; F41.9 Anxiety disorder, unspecified; Z79.890 Hormone replacement therapy; Z79.899 Other long term (current) drug therapy
CPT/HCPCS: J2704; J7030

== ENCOUNTER 2021-06-12 06:10 | Emergency (ER) | payer MEDICARE, MEDICAID ==
[~2021-06-12] VITALS: Ht 177.8 cm; Wt 70.5 kg
[~2021-06-12 06:10] MED LIST changes: +CONSTULOSE 20G/30ML PO; -LEVOXYL0.075 MG PO; +LEVOXYL0.1 MG PO; +PROTONIX 40MG T40 MG PO; +REQUIP2 MG PO
[2021-06-12] MEDS ORDERED: PRIL40 PO (06:36)
[2021-06-12 07:18] LABS: BASO % 0.5 % (0.0-2.0); GRAN # 2.6 K/mm3 (1.4-6.5); GRAN % 71.1 % (42.2-75.2); LYMPH # 0.7 K/mm3 (1.2-3.4); LYMPH % 19.7 % (20.0-51.0); MEAN CELL VOLUME 82 fl (80.0-100.0); MEAN CORPUSCULAR HGB CONC 32 g/dl (33.0-37.0); MEAN PLATELET VOLUME 9.2 fl (7.4-10.4); MONO # 0.3 K/mm3 (0.1-0.6); MONO % 8.4 % (1.7-9.3); PLATELET COUNT 133 K/mm3 (130-400); RED BLOOD COUNT 3.66 M/mm3 (4.10-5.30); REDCELL DISTRIBUTION WIDTH-CV 17.5 % (11.5-14.5)
[2021-06-12 07:24] LABS: COLLECTION METHOD CLEAN CATCH
[2021-06-12 07:29] LABS: ALBUMIN 3.3 gm/dL (3.5-5.0); BILIRUBIN,TOTAL 0.6 mg/dL (0.2-1.2); CALCIUM 8.3 mg/dL (8.4-10.2); CREATININE, serum 1.04 mg/dL (0.57-1.11); POTASSIUM 4.2 mmol/L (3.5-4.5); TOTAL PROTEIN 6.2 gm/dL (6.2-8.1)
[2021-06-12 07:35] LABS: HEMATOCRIT 30.1 % (37.0-47.0); HEMOGLOBIN 9.7 g/dl (12.5-16.0); MEAN CORPUSCULAR HEMOGLOBIN 27 pg (27-31)
[2021-06-12 07:37] LABS: MUCOUS Present (NOT PRESENT); PH 5 (5-8); URINE APPEARANCE Hazy (CLEAR/HAZY); URINE BACTERIA None Seen /hpf (NONE SEEN); URINE BILIRUBIN Negative (NEGATIVE); URINE BLOOD Negative (NEGATIVE); URINE COLOR Yellow (YELLOW); URINE GLUCOSE Negative (NEGATIVE); URINE KETONE Trace (NEGATIVE); URINE LEUKOCYTE ESTERASE Negative (NEGATIVE); URINE NITRATE Negative (NEGATIVE); URINE PROTEIN(semi-quant) Negative (NEGATIVE); URINE RBC 0-2 /hpf (0-2)
[2021-06-12 07:52] LABS: TRICYCLIC ANTIDEPRESS URINE NEGATIVE
[2021-06-12 08:09] LABS: ACETAMINOPHEN < 1.0 ug/mL (10-30); ALCOHOL(ethanol),MEDICAL < 10 mg/dL (0-10); SALICYLATE < 5.0 mg/dL (15.0-30.0)
[2021-06-12 08:28] LABS: TSH w REFLEX 2.359 uIU/mL (0.350-4.940)
[2021-06-12 16:37] VITALS: TEMP 98.5
[2021-06-12 20:14] VITALS: BP 124/78; PULSE 76
== END 2021-06-12 20:10 | disposition home or self-care (01) ==
LOC: COL.ER 06:10
PROVIDERS: Personal Emergency Response Attendant
DX: F32.A Depression, unspecified (principal); K74.60 Unspecified cirrhosis of liver; E03.9 Hypothyroidism, unspecified; K21.9 Gastro-esophageal reflux disease without esophagitis; F17.210 Nicotine dependence, cigarettes, uncomplicated; Z20.822 Contact with and (suspected) exposure to COVID-19; Z79.890 Hormone replacement therapy; Z79.899 Other long term (current) drug therapy

== ENCOUNTER 2021-06-14 06:22 | Inpatient (IN) | payer MEDICARE, MEDICAID ==
[~2021-06-14] VITALS: Ht 177.8 cm; Wt 70.5 kg
[2021-06-14] VITALS (33 sets, daily range): BP systolic 100–128; BP diastolic 50–82; PULSE 95–121; TEMP 98–98.1
[2021-06-14 06:54] LABS: BASO % 0.3 % (0.0-2.0); GRAN # 7.2 K/mm3 (1.4-6.5); GRAN % 81.3 % (42.2-75.2); HEMOGLOBIN 10.6 g/dl (12.5-16.0); LYMPH # 1.2 K/mm3 (1.2-3.4); LYMPH % 13.3 % (20.0-51.0); MEAN CELL VOLUME 83 fl (80.0-100.0); MEAN CORPUSCULAR HEMOGLOBIN 26 pg (27-31); MEAN CORPUSCULAR HGB CONC 32 g/dl (33.0-37.0); MEAN PLATELET VOLUME 8.9 fl (7.4-10.4); MONO # 0.4 K/mm3 (0.1-0.6); MONO % 4.8 % (1.7-9.3); PLATELET COUNT 209 K/mm3 (130-400); RED BLOOD COUNT 4.04 M/mm3 (4.10-5.30); REDCELL DISTRIBUTION WIDTH-CV 17.5 % (11.5-14.5)
[2021-06-14 06:59] LABS: HEMATOCRIT 33.4 % (37.0-47.0)
[2021-06-14 07:11] LABS: INR 1.3 (0.8-3.0); PROTHROMBIN TIME 14.9 SECONDS (9.7-12.8)
[2021-06-14 07:16] LABS: ALBUMIN 3.3 gm/dL (3.5-5.0); BILIRUBIN,TOTAL 1.4 mg/dL (0.2-1.2); CALCIUM 8.5 mg/dL (8.4-10.2); CREATININE, serum 1.3 mg/dL (0.57-1.11); TOTAL PROTEIN 6.4 gm/dL (6.2-8.1)
[2021-06-14 07:22] LABS: POTASSIUM 6.4 mmol/L (3.5-4.5)
[2021-06-14 08:31] LABS: CALCIUM 7.5 mg/dL (8.4-10.2); CREATININE, serum 1.23 mg/dL (0.57-1.11)
[2021-06-14 08:34] LABS: POTASSIUM 6.1 mmol/L (3.5-4.5)
[2021-06-15] VITALS (13 sets, daily range): BP systolic 93–117; BP diastolic 40–64; PULSE 95–119; TEMP 98–98.3
[2021-06-15 06:39] LABS: MEAN CELL VOLUME 82 fl (80.0-100.0); MEAN CORPUSCULAR HGB CONC 32 g/dl (33.0-37.0); MEAN PLATELET VOLUME 9.9 fl (7.4-10.4); PLATELET COUNT 145 K/mm3 (130-400); RED BLOOD COUNT 3.15 M/mm3 (4.10-5.30); REDCELL DISTRIBUTION WIDTH-CV 17.2 % (11.5-14.5)
[2021-06-15 06:49] LABS: HEMATOCRIT 25.9 % (37.0-47.0); HEMOGLOBIN 8.3 g/dl (12.5-16.0); MEAN CORPUSCULAR HEMOGLOBIN 26 pg (27-31)
[2021-06-15 06:58] LABS: CALCIUM 8.4 mg/dL (8.4-10.2); CREATININE, serum 1.25 mg/dL (0.57-1.11)
[2021-06-15 07:51] LABS: BAND 1 % (0-10); NEUTROPHILS 99 % (42.0-75.2); POLYCHROMASIA 1+
[2021-06-15 07:52] LABS: HYPOCHROMIA 1+; PLATELET ESTIMATE NORMAL (NORMAL); SCHISTOCYTES 1+
[2021-06-16] VITALS (23 sets, daily range): BP systolic 93–128; BP diastolic 51–63; PULSE 87–116; TEMP 97.7–98.5
[2021-06-16 06:53] LABS: BASO % 0.2 % (0.0-2.0); GRAN # 4.5 K/mm3 (1.4-6.5); GRAN % 80.8 % (42.2-75.2); LYMPH # 0.7 K/mm3 (1.2-3.4); MEAN CELL VOLUME 83 fl (80.0-100.0); MEAN CORPUSCULAR HGB CONC 32 g/dl (33.0-37.0); MEAN PLATELET VOLUME 9.5 fl (7.4-10.4); MONO # 0.4 K/mm3 (0.1-0.6); MONO % 6.5 % (1.7-9.3); PLATELET COUNT 130 K/mm3 (130-400); RED BLOOD COUNT 2.79 M/mm3 (4.10-5.30); REDCELL DISTRIBUTION WIDTH-CV 17.2 % (11.5-14.5)
[2021-06-16 07:05] LABS: ALBUMIN 2.6 gm/dL (3.5-5.0); CALCIUM 8.1 mg/dL (8.4-10.2); CREATININE, serum 1.12 mg/dL (0.57-1.11); HEMATOCRIT 23.1 % (37.0-47.0); HEMOGLOBIN 7.3 g/dl (12.5-16.0); MEAN CORPUSCULAR HEMOGLOBIN 26 pg (27-31); PHOSPHOROUS 3.7 mg/dL (2.3-4.7); POTASSIUM 5.3 mmol/L (3.5-4.5)
[2021-06-17] VITALS (20 sets, daily range): BP systolic 103–117; BP diastolic 51–67; PULSE 51–114; TEMP 97.2–98.3
[2021-06-17 06:55] LABS: BASO % 0.3 % (0.0-2.0); GRAN # 2.1 K/mm3 (1.4-6.5); GRAN % 67.5 % (42.2-75.2); LYMPH # 0.7 K/mm3 (1.2-3.4); LYMPH % 22.8 % (20.0-51.0); MEAN CELL VOLUME 83 fl (80.0-100.0); MEAN CORPUSCULAR HGB CONC 33 g/dl (33.0-37.0); MEAN PLATELET VOLUME 9.5 fl (7.4-10.4); MONO # 0.3 K/mm3 (0.1-0.6); MONO % 9.1 % (1.7-9.3); PLATELET COUNT 118 K/mm3 (130-400); RED BLOOD COUNT 2.65 M/mm3 (4.10-5.30); REDCELL DISTRIBUTION WIDTH-CV 17.2 % (11.5-14.5)
[2021-06-17 07:03] LABS: ALBUMIN 2.4 gm/dL (3.5-5.0); CALCIUM 7.8 mg/dL (8.4-10.2); CREATININE, serum 1.06 mg/dL (0.57-1.11); PHOSPHOROUS 3.8 mg/dL (2.3-4.7); POTASSIUM 4.2 mmol/L (3.5-4.5)
[2021-06-17 07:10] LABS: HEMATOCRIT 22.1 % (37.0-47.0); HEMOGLOBIN 7.2 g/dl (12.5-16.0); MEAN CORPUSCULAR HEMOGLOBIN 27 pg (27-31)
[2021-06-18] VITALS (8 sets, daily range): BP systolic 95–123; BP diastolic 48–63; PULSE 97–114; TEMP 97.9–98.7
[2021-06-18 06:51] LABS: BASO % 0.7 % (0.0-2.0); GRAN # 1.7 K/mm3 (1.4-6.5); GRAN % 58.6 % (42.2-75.2); LYMPH # 0.8 K/mm3 (1.2-3.4); LYMPH % 26.2 % (20.0-51.0); MEAN CELL VOLUME 82 fl (80.0-100.0); MEAN CORPUSCULAR HGB CONC 33 g/dl (33.0-37.0); MEAN PLATELET VOLUME 10.2 fl (7.4-10.4); MONO # 0.4 K/mm3 (0.1-0.6); MONO % 13.1 % (1.7-9.3); PLATELET COUNT 128 K/mm3 (130-400); RED BLOOD COUNT 2.59 M/mm3 (4.10-5.30); REDCELL DISTRIBUTION WIDTH-CV 17.3 % (11.5-14.5)
[2021-06-18 06:53] LABS: HEMATOCRIT 21.1 % (37.0-47.0); MEAN CORPUSCULAR HEMOGLOBIN 27 pg (27-31)
[2021-06-18 07:03] LABS: ALBUMIN 2.3 gm/dL (3.5-5.0); CALCIUM 7.7 mg/dL (8.4-10.2); CREATININE, serum 1.06 mg/dL (0.57-1.11); PHOSPHOROUS 4.2 mg/dL (2.3-4.7); POTASSIUM 3.8 mmol/L (3.5-4.5)
[2021-06-18 17:11] LABS: HEMATOCRIT 24.8 % (37.0-47.0); HEMOGLOBIN 7.9 g/dl (12.5-16.0)
[2021-06-19] VITALS (12 sets, daily range): BP systolic 111–143; BP diastolic 45–66; PULSE 98–122; TEMP 97.6–98.8
[2021-06-19 06:34] LABS: MEAN CELL VOLUME 81 fl (80.0-100.0); MEAN CORPUSCULAR HGB CONC 33 g/dl (33.0-37.0); MEAN PLATELET VOLUME 9.3 fl (7.4-10.4); PLATELET COUNT 122 K/mm3 (130-400); RED BLOOD COUNT 2.75 M/mm3 (4.10-5.30); REDCELL DISTRIBUTION WIDTH-CV 17.4 % (11.5-14.5)
[2021-06-19 06:44] LABS: HEMATOCRIT 22.2 % (37.0-47.0); HEMOGLOBIN 7.3 g/dl (12.5-16.0); MEAN CORPUSCULAR HEMOGLOBIN 27 pg (27-31)
[2021-06-19 06:45] LABS: ALBUMIN 2.4 gm/dL (3.5-5.0); CALCIUM 7.8 mg/dL (8.4-10.2); CREATININE, serum 0.94 mg/dL (0.57-1.11); PHOSPHOROUS 4.1 mg/dL (2.3-4.7)
[2021-06-19 07:11] LABS: TSH w REFLEX 5.102 uIU/mL (0.350-4.940)
[2021-06-19 09:03] LABS: EOSINOPHIL 3 % (0-4); HYPOCHROMIA 1+; PLATELET ESTIMATE NORMAL (NORMAL)
[2021-06-19 09:04] LABS: ANISOCYTOSIS 2+
[2021-06-19 09:05] LABS: LYMPHOCYTE 20 % (20.0-51.0); NEUTROPHILS 68 % (42.0-75.2)
[2021-06-19 11:26] LABS: ALBUMIN 2.6 gm/dL (3.5-5.0); BILIRUBIN,DIRECT 0.5 mg/dL (0.0-0.5); BILIRUBIN,TOTAL 0.9 mg/dL (0.2-1.2); TOTAL PROTEIN 5.2 gm/dL (6.2-8.1)
[2021-06-19 11:35] LABS: COLLECTION METHOD CLEAN CATCH
[2021-06-19 11:50] LABS: PH 5 (5-8); URINE APPEARANCE Clear (CLEAR/HAZY); URINE BILIRUBIN Negative (NEGATIVE); URINE BLOOD Negative (NEGATIVE); URINE COLOR Yellow (YELLOW); URINE GLUCOSE Negative (NEGATIVE); URINE KETONE Negative (NEGATIVE); URINE LEUKOCYTE ESTERASE Negative (NEGATIVE); URINE NITRATE Negative (NEGATIVE); URINE PROTEIN(semi-quant) Negative (NEGATIVE); URINE UROBILINOGEN Negative (NEGATIVE)
[2021-06-19 11:51] LABS: MUCOUS Present (NOT PRESENT); SQUAMOUS EPITHELIAL 0-2 /hpf (0-10); URINE BACTERIA None Seen /hpf (NONE SEEN); URINE RBC 0-2 /hpf (0-2)
[2021-06-20] VITALS (15 sets, daily range): BP systolic 107–138; BP diastolic 42–72; PULSE 105–117; TEMP 97.9–98.5
[2021-06-20 06:30] LABS: MEAN CELL VOLUME 81 fl (80.0-100.0); MEAN CORPUSCULAR HGB CONC 32 g/dl (33.0-37.0); MEAN PLATELET VOLUME 10.4 fl (7.4-10.4); PLATELET COUNT 120 K/mm3 (130-400); RED BLOOD COUNT 2.52 M/mm3 (4.10-5.30); REDCELL DISTRIBUTION WIDTH-CV 17.5 % (11.5-14.5)
[2021-06-20 06:34] LABS: HEMATOCRIT 20.4 % (37.0-47.0); MEAN CORPUSCULAR HEMOGLOBIN 26 pg (27-31)
[2021-06-20 06:36] LABS: HEMOGLOBIN 6.6 g/dl (12.5-16.0)
[2021-06-20 07:57] LABS: ANISOCYTOSIS 1+; BAND 6 % (0-10); EOSINOPHIL 2 % (0-4); LYMPHOCYTE 25 % (20.0-51.0); NEUTROPHILS 60 % (42.0-75.2); PLATELET ESTIMATE DECREASED (NORMAL)
[2021-06-20 11:06] LABS: ALBUMIN 2.7 gm/dL (3.5-5.0); BILIRUBIN,TOTAL 0.8 mg/dL (0.2-1.2); CREATININE, serum 0.92 mg/dL (0.57-1.11); MAGNESIUM 1.8 mg/dL (1.6-2.6); POTASSIUM 3.7 mmol/L (3.5-4.5)
[2021-06-20] MEDS ORDERED: CEPHALEXIN500 M1 PO (16:53)
[2021-06-20] MEDS ORDERED: VALTREX1 GM PO (16:54)
[2021-06-20] MEDS ORDERED: ZYPREXA10 MG PO (16:55)
[2021-06-20] MEDS ORDERED: FERRO-TIME325 MG PO (16:55)
[2021-06-20] MEDS ORDERED: NEURONTIN300 MG/CAP PO (16:56)
[2021-06-20] MEDS ORDERED: REQUIP3 MG PO (16:56)
[2021-06-20] MEDS ORDERED: FOLIC ACID 11 MG/TA1 PO (16:57)
[2021-06-20] MEDS ORDERED: NATURE'S BLEND100 M2 PO (16:57)
[2021-06-20] MEDS ORDERED: PRIL40 PO (17:05)
== END 2021-06-20 19:40 | DRG 580 ==
LOC: COL.ER 06:22 → SURG 10:22 → COL.ER 10:22 → SURG 10:22
PROVIDERS: Family Medicine; Internal Medicine; Internal Medicine Nephrology; Otolaryngology; Personal Emergency Response Attendant; Physician Assistant; Student in an Organized Health Care Education/Training Program; ADMIT Student in an Organized Health Care Education/Training Program
PROC: 0HC4XZZ Extirpation of Matter from Neck Skin, External Approach (ICD-10-PCS; 2021-06-14)
PROC: 0JQ40ZZ Repair Right Neck Subcutaneous Tissue and Fascia, Open Approach (ICD-10-PCS; principal; 2021-06-14 08:55)
PROC: 0HQ4XZZ Repair Neck Skin, External Approach (ICD-10-PCS; 2021-06-16)
PROC: 0W9G3ZZ Drainage of Peritoneal Cavity, Percutaneous Approach (ICD-10-PCS; 2021-06-19)
DX: S11.91XA Laceration without foreign body of unspecified part of neck, initial encounter (principal); E87.2 Acidosis; E44.0 Moderate protein-calorie malnutrition; J44.9 Chronic obstructive pulmonary disease, unspecified; E03.9 Hypothyroidism, unspecified; K70.30 Alcoholic cirrhosis of liver without ascites; F41.9 Anxiety disorder, unspecified; K21.9 Gastro-esophageal reflux disease without esophagitis; G89.29 Other chronic pain; M54.9 Dorsalgia, unspecified; R10.9 Unspecified abdominal pain; D64.9 Anemia, unspecified; M10.9 Gout, unspecified; F17.210 Nicotine dependence, cigarettes, uncomplicated; E87.5 Hyperkalemia; K58.9 Irritable bowel syndrome, unspecified; G25.81 Restless legs syndrome; E78.5 Hyperlipidemia, unspecified; I12.9 Hypertensive chronic kidney disease with stage 1 through stage 4 chronic kidney disease, or unspecified chronic kidney disease; N18.2 Chronic kidney disease, stage 2 (mild); F29 Unspecified psychosis not due to a substance or known physiological condition; E87.6 Hypokalemia; B02.9 Zoster without complications; F31.9 Bipolar disorder, unspecified; Z96.641 Presence of right artificial hip joint; Z20.822 Contact with and (suspected) exposure to COVID-19; X83.8XXA Intentional self-harm by other specified means, initial encounter; Y93.89 Activity, other specified; Y92.008 Other place in unspecified non-institutional (private) residence as the place of occurrence of the external cause; Z87.442 Personal history of urinary calculi; Z91.14 Patient's other noncompliance with medication regimen; Z68.22 Body mass index [BMI] 22.0-22.9, adult; Z23 Encounter for immunization
CPT/HCPCS: OP; 99223-AI; 99232-AI; 99233-AI; 99239; J0330; J0610; J0690; J1100; J1170; J1815; J1940; J2060; J2370; J2405; J2704; J3010; J7030; P9016; P9047; Q9967

== ENCOUNTER 2021-07-08 13:14 | Emergency (ER) | payer MEDICARE, MEDICAID ==
[~2021-07-08] VITALS: Ht 177.8 cm; Wt 68.2 kg
[~2021-07-08 13:14] MED LIST changes: +FERRO-TIME325 MG PO; +FOLIC ACID 11 MG/TA1 PO; +NATURE'S BLEND100 M2 PO; +NEURONTIN300 MG/CAP PO; +REQUIP3 MG PO; +VALTREX1 GM PO; +ZYPREXA10 MG PO
[2021-07-08 13:16] VITALS: TEMP 97.6
[2021-07-08 16:15] VITALS: BP 130/65; PULSE 99
--- NOTE | 2021-07-08 16:39 | NUR ---
The patient is in need of transport home. PAO contacted [facility] and informed the patient's RN that they could utilize a taxi voucher.
== END 2021-07-08 16:15 | disposition home or self-care (01) ==
LOC: COL.ER 13:14
DX: S52.122A Displaced fracture of head of left radius, initial encounter for closed fracture (principal); Z88.6 Allergy status to analgesic agent; W01.190A Fall on same level from slipping, tripping and stumbling with subsequent striking against furniture, initial encounter; Y92.830 Public park as the place of occurrence of the external cause
CPT/HCPCS: J2405

== ENCOUNTER 2021-07-09 01:44 | Emergency (ER) | payer MEDICARE, MEDICAID ==
[~2021-07-09] VITALS: Ht 172.7 cm; Wt 68.2 kg
[2021-07-09 01:52] VITALS: TEMP 98.8
[2021-07-09 02:32] LABS: MEAN CELL VOLUME 85 fl (80.0-100.0); MEAN CORPUSCULAR HGB CONC 32 g/dl (33.0-37.0); MEAN PLATELET VOLUME 9.3 fl (7.4-10.4); PLATELET COUNT 163 K/mm3 (130-400); RED BLOOD COUNT 3.33 M/mm3 (4.10-5.30); REDCELL DISTRIBUTION WIDTH-CV 19.1 % (11.5-14.5)
[2021-07-09 02:40] LABS: HEMATOCRIT 28.4 % (37.0-47.0); MEAN CORPUSCULAR HEMOGLOBIN 27 pg (27-31)
[2021-07-09 02:48] LABS: ANISOCYTOSIS 2+; BAND 1 % (0-10); EOSINOPHIL 4 % (0-4); LYMPHOCYTE 24 % (20.0-51.0); NEUTROPHILS 63 % (42.0-75.2)
[2021-07-09 02:50] LABS: HYPOCHROMIA 1+; PLATELET ESTIMATE NORMAL (NORMAL)
[2021-07-09 02:51] LABS: ALANINE AMINOTRANSFERASE 62 U/L (0-55); ALBUMIN 3.3 gm/dL (3.5-5.0); ALKALINE PHOSPHATASE 140 U/L (40-150); ANION GAP 11 mmol/L (7-16); AST,SGOT 142 U/L (5-34); BILIRUBIN,TOTAL 1.8 mg/dL (0.2-1.2); BLOOD UREA NITROGEN 22 mg/dL (10-20); CARBON DIOXIDE 21 mmol/L (22-29); CHLORIDE 103 mmol/L (98-107); CREATININE, serum 1.34 mg/dL (0.57-1.11); GLUCOSE 146 mg/dL (70-99); POTASSIUM 3.4 mmol/L (3.5-4.5); SODIUM 135 mmol/L (136-145); TOTAL PROTEIN 6.2 gm/dL (6.2-8.1)
[2021-07-09 02:52] LABS: ACETAMINOPHEN < 1.0 ug/mL (10-30); ALCOHOL(ethanol),MEDICAL < 10 mg/dL (0-10); SALICYLATE < 5.0 mg/dL (15.0-30.0)
[2021-07-09 05:52] LABS: CALCIUM 8.6 mg/dL (8.4-10.2); CREATININE, serum 1.19 mg/dL (0.57-1.11); POTASSIUM 3.4 mmol/L (3.5-4.5)
[2021-07-09 06:45] VITALS: BP 115/61; PULSE 98
== END 2021-07-09 06:45 | disposition home or self-care (01) ==
LOC: COL.ER 01:44
PROVIDERS: Personal Emergency Response Attendant
DX: F32.A Depression, unspecified (principal); K74.60 Unspecified cirrhosis of liver; E87.6 Hypokalemia
CPT/HCPCS: J7030

== ENCOUNTER 2021-07-09 18:20 | Emergency (ER) | payer MEDICARE, MEDICAID ==
[~2021-07-09] VITALS: Ht 177.8 cm; Wt 68.2 kg
[2021-07-09 20:00] LABS: TRICYCLIC ANTIDEPRESS URINE POSITIVE
[2021-07-10 20:29] VITALS: BP 111/58; PULSE 102; TEMP 98.8
== END 2021-07-10 20:30 ==
LOC: COL.ER 18:20
PROVIDERS: Emergency Medicine
DX: R44.0 Auditory hallucinations (principal); E87.6 Hypokalemia; F41.9 Anxiety disorder, unspecified; Z20.822 Contact with and (suspected) exposure to COVID-19; Z79.899 Other long term (current) drug therapy

== ENCOUNTER 2021-09-13 10:37 | Emergency (ER) | payer MEDICARE, MEDICAID ==
[~2021-09-13] VITALS: Ht 177.8 cm; Wt 63.6 kg
[2021-09-13 10:49] VITALS: TEMP 97.1
[2021-09-13 11:37] LABS: BASO % 0.2 % (0.0-2.0); EOS % 0.2 % (0.0-4.0); GRAN # 2.8 K/mm3 (1.4-6.5); GRAN % 70.2 % (42.2-75.2); HEMATOCRIT 32.3 % (37.0-47.0); LYMPH # 0.9 K/mm3 (1.2-3.4); LYMPH % 22.3 % (20.0-51.0); MEAN CELL VOLUME 79 fl (80.0-100.0); MEAN CORPUSCULAR HEMOGLOBIN 25 pg (27-31); MEAN CORPUSCULAR HGB CONC 31 g/dl (33.0-37.0); MEAN PLATELET VOLUME 9.2 fl (7.4-10.4); MONO # 0.3 K/mm3 (0.1-0.6); MONO % 6.9 % (1.7-9.3); PLATELET COUNT 137 K/mm3 (130-400); RED BLOOD COUNT 4.07 M/mm3 (4.10-5.30); REDCELL DISTRIBUTION WIDTH-CV 18.4 % (11.5-14.5)
[2021-09-13 11:54] LABS: ALBUMIN 3.1 gm/dL (3.5-5.0); BILIRUBIN,TOTAL 1.1 mg/dL (0.2-1.2); TOTAL PROTEIN 5.8 gm/dL (6.2-8.1)
[2021-09-13 11:59] LABS: POTASSIUM 2.7 mmol/L (3.5-4.5)
[2021-09-13] MEDS ORDERED: NORCO 325 MG-51 TAB PO (13:41)
[2021-09-13] MEDS ORDERED: ZOFRAN ODT4 MG PO (13:42)
[2021-09-13 13:57] VITALS: BP 97/58; PULSE 80
== END 2021-09-13 14:00 | disposition home or self-care (01) ==
LOC: COL.ER 10:37
PROVIDERS: Physician Assistant
DX: K70.31 Alcoholic cirrhosis of liver with ascites (principal); K42.9 Umbilical hernia without obstruction or gangrene; Z88.5 Allergy status to narcotic agent; Z28.311 Partially vaccinated for COVID-19
CPT/HCPCS: J2405; J3010; Q9967

== ENCOUNTER 2021-11-15 21:21 | Emergency (ER) | payer MEDICARE, MEDICAID ==
[~2021-11-15] VITALS: Ht 177.8 cm; Wt 75.0 kg
[2021-11-15 21:26] VITALS: TEMP 97.1
[2021-11-15 22:15] LABS: BASO % 0.4 % (0.0-2.0); GRAN % 74.5 % (42.2-75.2); HEMATOCRIT 29.8 % (37.0-47.0); HEMOGLOBIN 9.6 g/dl (12.5-16.0); LYMPH # 1.1 K/mm3 (1.2-3.4); MEAN CELL VOLUME 77 fl (80.0-100.0); MEAN CORPUSCULAR HEMOGLOBIN 25 pg (27-31); MEAN CORPUSCULAR HGB CONC 32 g/dl (33.0-37.0); MEAN PLATELET VOLUME 9.1 fl (7.4-10.4); MONO # 0.3 K/mm3 (0.1-0.6); MONO % 5.1 % (1.7-9.3); PLATELET COUNT 131 K/mm3 (130-400); RED BLOOD COUNT 3.86 M/mm3 (4.10-5.30); REDCELL DISTRIBUTION WIDTH-CV 19.6 % (11.5-14.5)
[2021-11-15 22:33] LABS: ALBUMIN 2.9 gm/dL (3.5-5.0); BILIRUBIN,TOTAL 0.7 mg/dL (0.2-1.2); C-REACTIVE PROTEIN 0.57 mg/dL (0.00-0.50); CALCIUM 8.3 mg/dL (8.4-10.2); CREATININE, serum 0.96 mg/dL (0.57-1.11); POTASSIUM 4.5 mmol/L (3.5-4.5); TOTAL PROTEIN 5.6 gm/dL (6.2-8.1)
[2021-11-15 22:53] VITALS: BP 115/74; PULSE 102
== END 2021-11-15 23:00 | disposition home or self-care (01) ==
LOC: COL.ER 21:21
PROVIDERS: Family Medicine
DX: K42.9 Umbilical hernia without obstruction or gangrene (principal); F17.210 Nicotine dependence, cigarettes, uncomplicated; Z90.49 Acquired absence of other specified parts of digestive tract; Z88.6 Allergy status to analgesic agent; Z28.310 Unvaccinated for COVID-19
CPT/HCPCS: J1170

== ENCOUNTER 2021-11-25 11:02 | Emergency (ER) | payer MEDICARE, MEDICAID ==
[~2021-11-25] VITALS: Ht 177.8 cm; Wt 75.0 kg
[2021-11-25 11:04] VITALS: TEMP 98
[2021-11-25 12:30] LABS: BASO % 0.4 % (0.0-2.0); EOS % 0.9 % (0.0-4.0); GRAN # 3.1 K/mm3 (1.4-6.5); GRAN % 69.2 % (42.2-75.2); LYMPH % 21.3 % (20.0-51.0); MEAN CELL VOLUME 81 fl (80.0-100.0); MEAN CORPUSCULAR HGB CONC 31 g/dl (33.0-37.0); MEAN PLATELET VOLUME 9.6 fl (7.4-10.4); MONO # 0.4 K/mm3 (0.1-0.6); MONO % 7.8 % (1.7-9.3); PLATELET COUNT 147 K/mm3 (130-400); REDCELL DISTRIBUTION WIDTH-CV 20.8 % (11.5-14.5)
[2021-11-25 12:36] LABS: HEMATOCRIT 28.5 % (37.0-47.0); HEMOGLOBIN 8.9 g/dl (12.5-16.0); MEAN CORPUSCULAR HEMOGLOBIN 25 pg (27-31)
[2021-11-25 12:46] LABS: ALBUMIN 2.8 gm/dL (3.5-5.0); BILIRUBIN,TOTAL 0.5 mg/dL (0.2-1.2); CALCIUM 8.2 mg/dL (8.4-10.2); CREATININE, serum 1.12 mg/dL (0.57-1.11); POTASSIUM 4.3 mmol/L (3.5-4.5); TOTAL PROTEIN 5.7 gm/dL (6.2-8.1)
[2021-11-25] MEDS ORDERED: BACTRIM DS 8001 TAB PO (15:53)
[2021-11-25] MEDS ORDERED: CEPHALEXIN500 M1 PO (15:53)
--- NOTE | 2021-11-25 16:13 | NUR ---
PAO received phone call from PAO Mederos at PCP office. Rosa M states that the patient fell and is on her way to the ED to evaluate a possible septic knee. Per Rosa M, the patient has a long history of MH concerns. Rosa M states that she was on the phone with the patient for 2.5 hours this morning becuase the patient was have auditory and visual hallucinations that 3 men were outside of her apartment with guns. Rosa M states that the patient has an appointment with ([facility] psychiatrist) tomorrow morning. Patient sees Dr. Mcintosh for PCP care. Rosa M also states that the patient was recently established with [facility]. PAO met with patient at bedside. Patient verbalizes to this social insurance administrator that she feels like she is in "protection mode" at this time and spent the night calling crisis hotlines. She states that she does not feel like she needs inpatient psych care at this moment but states " i feel like i'm getting close and i'm trying to do the things to prevent getting to that point". Patient has a previous hx of SI attempts and was most recently at [facility]. Patient states that she is excited to meet with the psychiatrist tomorrow and is denying SI/HI ideation at this time. Patient states that she is doesn't know if she is having auditory hallucinations or if she is just hearing her neighbors through the wall. She verbalizes her housing concerns which are being worked through with Rosa M at [facility]. States that her will be at home tonight and feels safe returning home. She knows she can go to the [facility] if needed. PAO Mederos at [facility] contacted and provided with the above information.
[2021-11-25 16:16] VITALS: BP 105/63; PULSE 97
== END 2021-11-25 16:16 | disposition home or self-care (01) ==
LOC: COL.ER 11:02
PROVIDERS: Personal Emergency Response Attendant
DX: L03.115 Cellulitis of right lower limb (principal)
CPT/HCPCS: J0696

== ENCOUNTER 2022-01-01 11:32 | Emergency (ER) | payer MEDICARE, MEDICAID ==
[~2022-01-01] VITALS: Ht 180.3 cm; Wt 75.0 kg
[2022-01-01 11:56] VITALS: TEMP 98.2
[2022-01-01 14:27] LABS: MEAN CELL VOLUME 77 fl (80.0-100.0); MEAN CORPUSCULAR HGB CONC 31 g/dl (33.0-37.0); MEAN PLATELET VOLUME 10.1 fl (7.4-10.4); PLATELET COUNT 102 K/mm3 (130-400); REDCELL DISTRIBUTION WIDTH-CV 18.4 % (11.5-14.5)
[2022-01-01 14:30] LABS: HEMATOCRIT 27.8 % (37.0-47.0); HEMOGLOBIN 8.7 g/dl (12.5-16.0); MEAN CORPUSCULAR HEMOGLOBIN 24 pg (27-31)
[2022-01-01 14:46] LABS: ALANINE AMINOTRANSFERASE 26 U/L (0-55); ALBUMIN 2.9 gm/dL (3.5-5.0); ALKALINE PHOSPHATASE 207 U/L (40-150); ANION GAP 10 mmol/L (7-16); AST,SGOT 43 U/L (5-34); BILIRUBIN,TOTAL 0.5 mg/dL (0.2-1.2); BLOOD UREA NITROGEN 16 mg/dL (10-20); CALCIUM 7.8 mg/dL (8.4-10.2); CARBON DIOXIDE 29 mmol/L (22-29); CHLORIDE 100 mmol/L (98-107); GLUCOSE 83 mg/dL (70-99); SODIUM 139 mmol/L (136-145); TOTAL PROTEIN 5.7 gm/dL (6.2-8.1)
[2022-01-01 14:54] LABS: TROPONIN-I < 0.010 ng/mL (0.00-0.033)
[2022-01-01 15:17] LABS: ANISOCYTOSIS 2+; BAND 3 % (0-10); HYPOCHROMIA 2+; LYMPHOCYTE 28 % (20.0-51.0); MICROCYTOSIS 1+; NEUTROPHILS 67 % (42.0-75.2); PLATELET ESTIMATE NORMAL (NORMAL)
[2022-01-01 15:18] LABS: OVALOCYTES 1+
[2022-01-01 15:57] VITALS: BP 129/76; PULSE 88
== END 2022-01-01 15:58 | disposition home or self-care (01) ==
LOC: COL.ER 11:32
PROVIDERS: Nurse Practitioner
DX: U07.1 COVID-19 (principal); S70.01XA Contusion of right hip, initial encounter; F17.210 Nicotine dependence, cigarettes, uncomplicated; W10.9XXA Fall (on) (from) unspecified stairs and steps, initial encounter; Y93.01 Activity, walking, marching and hiking

== ENCOUNTER 2022-05-11 12:24 | Emergency (ER) | payer MEDICARE, MEDICAID ==
[~2022-05-11] VITALS: Ht 180.3 cm; Wt 68.2 kg
[~2022-05-11 12:24] MED LIST changes: +ATARAX 25MG25 MG/TAB PO; +BOOST HIGH PRO240 ML PO; +BUMEX 1MG TA1 MG/TA1 PO; +CELEXA 20MG20 MG/TAB PO; +D3-5050000 IU PO; +HALDOL 2MG T2 MG/TAB PO; +LACTULOSE10 GM/153 PO; -LEVOXYL0.1 MG PO; +LEVOXYL0.175 MG PO; +LIDODERM 5% PATC1 EA TP; +MELATONIN3 M1 PO; +MINIPRESS 1M1 MG/CAP PO; +NARCAN4 MG NS; +NATURAL MAGNES200 MG PO; +NEURONTIN600 MG/TAB PO; +NYSTATIN100000 U/1 TOP; +PROZAC 20MG20 MG PO; +RT ADVAIR 128 DISKUS IH; +VITAMIN A10k PO; +VITAMIN D31000 I1 PO; +XIFAXAN550 MG PO; +ZINC SULFATE 1566 MG PO; +ZOFRAN8 MG PO
[2022-05-11 12:32] VITALS: TEMP 97.4
[2022-05-11 14:34] LABS: BASO % 0.3 % (0.0-2.0); EOS % 0.2 % (0.0-4.0); GRAN # 6.9 K/mm3 (1.4-6.5); GRAN % 74.1 % (42.2-75.2); HEMATOCRIT 41.7 % (37.0-47.0); HEMOGLOBIN 12.9 g/dl (12.5-16.0); LYMPH # 1.9 K/mm3 (1.2-3.4); LYMPH % 20.6 % (20.0-51.0); MEAN CELL VOLUME 74 fl (80.0-100.0); MEAN CORPUSCULAR HEMOGLOBIN 23 pg (27-31); MEAN CORPUSCULAR HGB CONC 31 g/dl (33.0-37.0); MEAN PLATELET VOLUME 9.5 fl (7.4-10.4); MONO # 0.4 K/mm3 (0.1-0.6); MONO % 4.5 % (1.7-9.3); PLATELET COUNT 166 K/mm3 (130-400); RED BLOOD COUNT 5.61 M/mm3 (4.10-5.30); REDCELL DISTRIBUTION WIDTH-CV 20.2 % (11.5-14.5)
[2022-05-11 14:47] LABS: ALANINE AMINOTRANSFERASE 19 U/L (0-55); ALBUMIN 2.6 gm/dL (3.5-5.0); ALKALINE PHOSPHATASE 223 U/L (40-150); ANION GAP 16 mmol/L (7-16); AST,SGOT 35 U/L (5-34); BILIRUBIN,TOTAL 0.8 mg/dL (0.2-1.2); BLOOD UREA NITROGEN 6 mg/dL (10-20); CALCIUM 8.2 mg/dL (8.4-10.2); CARBON DIOXIDE 17 mmol/L (22-29); CHLORIDE 103 mmol/L (98-107); CREATININE, serum 0.78 mg/dL (0.57-1.11); GLUCOSE 80 mg/dL (70-99); LIPASE 16 U/L (8-78); POTASSIUM 3.6 mmol/L (3.5-4.5); SODIUM 136 mmol/L (136-145); TOTAL PROTEIN 6.4 gm/dL (6.2-8.1)
[2022-05-11 14:54] LABS: TROPONIN-I < 0.010 ng/mL (0.00-0.033)
[2022-05-11 15:35] LABS: COLLECTION METHOD CLEAN CATCH
[2022-05-11 15:46] LABS: MUCOUS Present (NOT PRESENT); URINE BACTERIA None Seen /hpf (NONE SEEN)
[2022-05-11 15:47] LABS: PH 5.5 (5.0-8.5); URINE APPEARANCE Hazy (CLEAR/HAZY); URINE COLOR Yellow (YELLOW); URINE GLUCOSE Negative (NEGATIVE); URINE KETONE TRACE (NEGATIVE); URINE PROTEIN(semi-quant) 1+ (NEGATIVE)
[2022-05-11 15:48] LABS: URINE BLOOD 2+ (NEGATIVE); URINE NITRATE Negative (NEGATIVE)
[2022-05-11] MEDS ORDERED: PROMETHAZINE12.5 M5 PO (19:31)
[2022-05-11 19:44] VITALS: BP 129/79; PULSE 106
== END 2022-05-11 20:00 | disposition home or self-care (01) ==
LOC: COL.ER 12:24
PROVIDERS: Emergency Medicine
DX: R11.2 Nausea with vomiting, unspecified (principal); R19.7 Diarrhea, unspecified; R00.0 Tachycardia, unspecified; Z87.891 Personal history of nicotine dependence; Z20.822 Contact with and (suspected) exposure to COVID-19; Z28.310 Unvaccinated for COVID-19
CPT/HCPCS: J2405; J2550; J7030; J7040; Q9967

== ENCOUNTER 2022-06-19 09:50 | Day surgery (SDC) | payer MEDICARE, MEDICAID ==
[~2022-06-19] VITALS: Ht 180.3 cm; Wt 87.4 kg
[2022-06-19 10:40] LABS: TRICYCLIC ANTIDEPRESS URINE NEGATIVE
[2022-06-19 11:57] VITALS: BP 131/81; PULSE 96; TEMP 98.9
[2022-06-19 11:58] VITALS: BP 120/73; PULSE 104; TEMP 98.5
[2022-06-19 12:12] VITALS: BP 113/79; PULSE 95
[2022-06-19 12:27] VITALS: BP 127/76; PULSE 89
[2022-06-19 12:42] VITALS: BP 120/71; PULSE 94
[2022-06-19 12:57] VITALS: BP 107/66; PULSE 93
--- NOTE | 2022-06-19 13:06 | NUR ---
1157- PT RETURNS TO [facility] VIA CART, TRANSFERED TO RECLINER WITH 2:1 SBA. PATIENT AWAKE AND ALERT. RESPIRATIONS UNLABORED. PT. REPORTS SOME NAUSEA, BUT THAT STATES THAT IT SEEMS TO BE "GOING AWAY". VS OBTAINED. CALL LIGHT AT SIDE AND SIGNIFICANT OTHER WAS CALLED AND NOTIFIED THAT SHE IS DONE. 1215- PT. TOLERATES APPLESAUCE AND SPRITE WITH NO NAUSEA. SIGNIFICANT OTHER IN ROOM. 1241- DR. PICKERING IN ROOM SPEAKING WITH PATIENT. 1252- D/C INSTRUCTIONS AND EDUCATION SHEETS REVIEWED WITH PATIENT. PT VERBALIZES UNDERSTANDING. COPIES PROVIDED IN D/C FOLDER. 1306- PT TAKEN TO PATIENT ENTERANCE VIA W/C AND WAS ASSISTED TO SIGNIFICANT OTHER'S CAR. PT'S PHONE AND ALIGNMENT MECHANIC WERE SENT WITH HER IN D/C BAG WITH D/C FOLDER.
== END 2022-06-19 13:06 | disposition home or self-care (01) ==
LOC: SDCO 09:50
PROVIDERS: Nurse Anesthetist, Certified Registered
DX: K76.6 Portal hypertension (principal); I85.10 Secondary esophageal varices without bleeding; D50.9 Iron deficiency anemia, unspecified; K31.89 Other diseases of stomach and duodenum; K29.70 Gastritis, unspecified, without bleeding; F17.210 Nicotine dependence, cigarettes, uncomplicated; K70.31 Alcoholic cirrhosis of liver with ascites; K42.9 Umbilical hernia without obstruction or gangrene
CPT/HCPCS: J2704; J3010

== ENCOUNTER 2022-09-04 09:38 | Day surgery (SDC) | payer MEDICARE, MEDICAID ==
[~2022-09-04] VITALS: Ht 180.3 cm; Wt 84.4 kg
[2022-09-04 11:00] VITALS: BP 117/71; PULSE 110; TEMP 97
--- NOTE | 2022-09-04 11:00 | NUR ---
PATIENT AMBULATED TO CHAIR WITH STEADY GAIT. PATIENT ALERT AND ORIENTED X3, DENIES PAIN, NAUSEA AND SHORTNESS OF BREATH. BREATHING REGULAR AND UNLABORED. SKIN WARM AND DRY. SEE CHART FOR VITAL SIGNS. NURSE HANDOFF COMPLETED IN ROOM. PATIENT HAD GRAPE JUICE AND SABINA CRACKERS, BOTH TOLERATED WELL WITH NO DYSPHAGIA. CALL LIGHT IN REACH.
[2022-09-04 11:15] VITALS: BP 107/73; PULSE 110
[2022-09-04 11:21] VITALS: BP 112/64; PULSE 101; TEMP 97.2
[2022-09-04 11:30] VITALS: BP 111/68; PULSE 107
--- NOTE | 2022-09-04 11:30 | NUR ---
MET WITH PATIENT WHEN SHE FIRST GOT BACK TO BAY [facility] AND DISCUSSED THE PROCEDURE. DISCHARGE TEACHING COMPLETED WITH PRINTED EDUCATION AND INSTRUCTIONS SENT HOME WITH PATIENT. QUESTIONS ANSWERED. PATIENT VERBALIZED UNDERSTANDING OF TEACHING. RIGHT HAND IV REMOVED. PRESSURE HELD OVER SITE AND COVERED WITH GAUZE AND COBAN DRESSING. PATIENT DISCHARGED WITH F[facility]END [facility].
== END 2022-09-04 11:40 | disposition home or self-care (01) ==
LOC: SDCO 09:38
DX: I85.00 Esophageal varices without bleeding (principal); K70.31 Alcoholic cirrhosis of liver with ascites; K31.89 Other diseases of stomach and duodenum; K76.6 Portal hypertension; Z86.16 Personal history of COVID-19; F17.210 Nicotine dependence, cigarettes, uncomplicated
CPT/HCPCS: J2704; J7030

== ENCOUNTER → 2023-02-18 | Outpatient (CLI) | payer MEDICARE, MEDICAID ==
[~2023-02-18] VITALS: Ht 180.3 cm; Wt 91.0 kg
[2023-02-18 10:18] VITALS: BP 107/68; PULSE 120; TEMP 97.9
[2023-02-18 11:50] VITALS: BP 106/69; PULSE 98
== END ==
LOC: COL.RAD 09:43
DX: K70.31 Alcoholic cirrhosis of liver with ascites (principal)

== ENCOUNTER → 2023-05-25 | Outpatient (CLI) | payer MEDICARE, MEDICAID ==
[~2023-05-25] VITALS: Ht 180.3 cm; Wt 91.2 kg
[2023-05-25 12:24] VITALS: BP 103/66; PULSE 98; TEMP 97.8
[2023-05-25 13:25] VITALS: BP 97/58; PULSE 107
== END ==
LOC: COL.RAD 11:45
DX: J90 Pleural effusion, not elsewhere classified (principal)

== ENCOUNTER → 2023-06-10 | Outpatient (CLI) | payer MEDICARE ==
[~2023-06-10] VITALS: Ht 180.3 cm; Wt 88.2 kg
[2023-06-10 14:12] VITALS: BP 111/59; PULSE 113; TEMP 98.3
[2023-06-10 15:24] VITALS: BP 107/60; PULSE 107
== END ==
LOC: COL.RAD 13:15
DX: J90 Pleural effusion, not elsewhere classified (principal); K72.90 Hepatic failure, unspecified without coma; K74.60 Unspecified cirrhosis of liver

== ENCOUNTER → 2023-09-10 | Outpatient (CLI) | payer MEDICARE ==
[~2023-09-10] VITALS: Ht 180.3 cm; Wt 88.0 kg
[~2023-09-10] MED LIST changes: +MEDROL 4MG DOSPA4 MG PO; +RT ADVAIR 128 DISKUS
[2023-09-10 09:40] VITALS: BP 121/77; PULSE 110; TEMP 97.7
[2023-09-10 10:30] VITALS: BP 107/68; PULSE 94
== END ==
LOC: COL.RAD 09:15
DX: J90 Pleural effusion, not elsewhere classified (principal)